=== PATIENT | female | born 1970 | race Caucasian/White ===

== ENCOUNTER 2017-12-25 15:44 | Emergency (ER) | payer BC ==
[2017-12-25] MEDS ORDERED: Sodium Chloride 0.9% 10 ML Syringe FLUSH PRN (16:04)
[2017-12-25] MEDS ORDERED: Morphine 10 MG/ML Syringe IVPUSH ONE (16:04)
[2017-12-25] MEDS ORDERED: Ondansetron 4 MG/2 ML SDV IVPUSH ONE ×2 (16:04→22:00)
--- NOTE | 2017-12-25 16:14 | EDM.PDOC ---
ED HPI GENERAL MEDICAL PROBLEM - General Chief Complaint: Abdominal Pain Stated Complaint: abdominal pain Time Seen by Provider: 12/25/17 16:03 Source of Information: Reports: Patient History Limitations: Reports: No Limitations - History of Present Illness INITIAL COMMENTS - FREE TEXT/NARRATIVE: 2 day history of lower abdominal pain. Described as suprapubic, slightly to the left. Increased pain when patient makes any effort to urinate. Improves when laying flat and relaxed. No fevers/chills. Mild nausea. No emesis/bowel changes/constipation/loose stools. No urinary changes. History of hysterectomy/right ovary removal. Pain is constant, sharp. Left Lower Abdomen Pain Score (Numeric/FACES): 10 - Related Data Allergies Allergy/AdvReac Type Severity Reaction Status Date / Time gluten Allergy Diarrhea, Verified 12/25/17 15:53 severe abdominal pain Home Meds: Home Meds ALPRAZolam [Xanax] 0.25 mg PO BEDTIME 12/14/13 [History] Citalopram Hydrobromide [Celexa] 40 mg PO 2000 06/01/15 [History] Lidocaine [Lidoderm] 1 patch TP ASDIRECTED PRN 06/01/15 [History] SUMAtriptan Succinate [Imitrex] 4 mg SQ ASDIRECTED PRN 09/04/15 [History] Amitriptyline [Elavil] 10 mg PO BEDTIME 11/25/15 [History] Hydrocodone/Acetaminophen [Hydrocodon-Acetaminophen 5-325] 1 each PO Q4HR PRN [History] Montelukast Sodium 10 mg PO BEDTIME 11/25/15 [History] Amoxicillin/Potassium Clav [Augmentin 875-125 Tablet] 1 each PO Q12H #14 tablet 12/25/17 [Rx] LORazepam 0.5 mg PO DAILY 12/25/17 [History] Ondansetron [Zofran ODT] 4 mg PO Q6H PRN #5 tab.dis 12/25/17 [Rx] oxyCODONE HCl/Acetaminophen [Percocet 5-325 mg Tablet] 1 each PO ASDIRECTED PRN #15 tablet 12/25/17 [Rx] Past Medical History HEENT History: Reports: Allergic Rhinitis Gastrointestinal History: Reports: Chronic Diarrhea, Inflammatory Bowel Disease Other Gastrointestinal History: Dyspepsia Musculoskeletal History: Reports: Back Pain, Chronic Neurological History: Reports: Headaches, Chronic Psychiatric History: Reports: Anxiety, Depression Other Psychiatric History: insomnia Other Dermatologic History: 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 - Past Surgical History Female Surgical History: Reports: Hysterectomy, Oophorectomy (right) Social & Family History - Tobacco Use Smoking Status *Q: Former Smoker Years of Tobacco use: 20 Packs/Tins Daily: 1 Used Tobacco, but Quit: Yes Month/Year Tobacco Last Used: >1 year Second Hand Smoke Exposure: Yes - Alcohol Use Days Per Week of Alcohol Use: 0 - Recreational Drug Use Recreational Drug Use: No - Living Situation & Occupation Living situation: Reports: Occupation: Employed ED ROS GENERAL - Review of Systems Review Of Systems: See Below Constitutional: Reports: No Symptoms HEENT: Reports: No Symptoms Respiratory: Reports: No Symptoms Cardiovascular: Reports: No Symptoms Endocrine: Reports: No Symptoms GI/Abdominal: Reports: Abdominal Pain, Nausea. Denies: Black Stool, Bloody Stool, Constipation, Diarrhea, Distension, Stool Incontinence, Vomiting Musculoskeletal: Reports: No Symptoms Skin: Reports: No Symptoms Neurological: Reports: No Symptoms Psychiatric: Reports: No Symptoms Hematologic/Lymphatic: Reports: No Symptoms ED EXAM, GI/ABD - Physical Exam Exam: See Below Exam Limited By: No Limitations General Appearance: Alert, Moderate Distress, Obese Eyes: Bilateral: Normal Appearance, EOMI Ears: Normal External Exam Nose: No: Nasal Drainage Throat/Mouth: Normal Inspection, Normal Lips, Normal Voice, No Airway Compromise Head: Atraumatic, Normocephalic Neck: Supple, Non-Tender Respiratory/Chest: No Respiratory Distress, Lungs Clear, Normal Breath Sounds, No Accessory Muscle Use Cardiovascular: Normal Peripheral Pulses, Regular Rate, Rhythm, No Murmur GI/Abdominal Exam: Normal Bowel Sounds, Soft, Other (tender over suprapubic area , also to left of same area/mild rebound) (Female) Exam: Other (palpation of pouch area (hx hysterectomy) causes tenderness. mild fullness noted. Rebound when examining finger withdrawn. ) Rectal (Female) Exam: Deferred Back Exam: Normal Inspection. No: CVA Tenderness (L), CVA Tenderness (R) Extremities: Normal Inspection, Non-Tender, Normal Capillary Refill Neurological: Alert, Oriented, Normal Cognition, Normal Gait, No Motor/Sensory Deficits Psychiatric: Normal Affect, Normal Mood Skin Exam: Warm, Dry, Intact Course - Vital Signs Last Recorded V/S: Last Vital Signs Temp 36.9 C 12/25/17 15:45 Pulse 100 12/25/17 20:46 Resp 13 12/25/17 20:46 BP 106/72 12/25/17 20:46 Pulse Ox 91 L 12/25/17 20:46 - Orders/Labs/Meds Orders: Active Orders 24 hr Category Date Time Status Abdomen Pelvis w Cont [CT] Stat Exams 12/25/17 17:27 Taken Pelvis Non OB Comp [US] Stat Exams 12/25/17 16:05 Taken Transvaginal Non OB [US] Routine Exams 12/25/17 17:53 Taken Morphine Med 12/25/17 22:00 Once 5 mg IM ONETIME ONE Ondansetron [Zofran] Med 12/25/17 22:00 Once 4 mg IVPUSH ONETIME ONE Sodium Chloride 0.9% [Normal Saline] 1,000 ml Med 12/25/17 20:08 Active IV .BOLUS Sodium Chloride 0.9% [Saline Flush] Med 12/25/17 16:04 Active 10 ml FLUSH ASDIRECTED PRN Saline Lock Insert [OM.PC] Routine Oth 12/25/17 16:04 Ordered Medication Orders Sodium Chloride (Normal Saline) 1,000 mls @ 500 mls/hr IV .BOLUS ONE Stop: 12/25/17 22:07 Last Admin: 12/25/17 20:17 Dose: 500 mls/hr Morphine Sulfate (Morphine) 5 mg IM ONETIME ONE Stop: 12/25/17 22:01 Ondansetron HCl (Zofran) 4 mg IVPUSH ONETIME ONE Stop: 12/25/17 22:01 Last Admin: 12/25/17 20:19 Dose: 4 mg Sodium Chloride (Saline Flush) 10 ml FLUSH ASDIRECTED PRN PRN Reason: Keep Vein Open Last Admin: 12/25/17 20:20 Dose: 10 ml Labs: Laboratory Tests 12/25/17 12/25/17 12/25/17 Range/Units 16:13 16:13 17:00 WBC 10.8 H (4.0-10.2) K/uL RBC 4.96 (3.77-5.09) M/uL Hgb 15.5 D (11.7-15.5) g/dL Hct 44.4 (34.0-46.0) % MCV 89.5 (84.0-98.0) fL MCH 31.3 (28.2-33.3) pg MCHC 34.9 (31.7-36.0) g/dL RDW 12.0 (11.2-14.1) % Plt Count 224 (150-350) K/uL Neut % (Auto) 69.3 (45.0-80.0) % Lymph % (Auto) 16.9 (10.0-50.0) % [place] % (Auto) 13.1 (2.0-14.0) % Eos % (Auto) 0.5 (0.0-5.0) % Baso % (Auto) 0.2 (0.0-2.0) % Neut # (Auto) 7.50 H (1.40-7.00) K/uL Lymph # (Auto) 1.83 (0.50-3.50) K/uL [place] # (Auto) 1.42 H (0.00-1.00) K/uL Eos # (Auto) 0.05 (0.00-0.50) K/uL Baso # (Auto) 0.02 (0.00-0.20) K/uL Sodium 138 (136-145) mmol/L Potassium 3.7 (3.5-5.1) mmol/L Chloride 105 (98-107) mmol/L Carbon Dioxide 22.0 (21.0-32.0) mmol/L BUN 12 (7-18) mg/dL Creatinine 0.74 (0.51-1.17) mg/dL Est Cr Clr Drug Dosing 79.42 mL/min Estimated GFR (MDRD) > 60 mL/min Glucose 114 H (74-106) mg/dL Calcium 8.7 (8.5-10.1) mg/dL Total Bilirubin 0.5 (0.2-1.0) mg/dL AST 11 L (15-37) U/L ALT 17 (12-78) U/L Alkaline Phosphatase 68 (46-116) IU/L Total Protein 7.1 (6.4-8.2) g/dL Albumin 3.5 (3.4-5.0) g/dL Specimen Type Urinblad Urine Color Yellow Urine Appearance Clear Urine pH 6.0 (5.0-9.0) Ur Specific [place] 1.010 (1.005-1.030) Urine Protein Negative (NEGATIVE) mg/dL Urine Glucose (UA) Negative (NEGATIVE) mg/dL Urine Ketones Negative (NEGATIVE) mg/dL Urine Occult Blood Trace-intact H (NEGATIVE) Urine Nitrite Negative (NEGATIVE) Urine Bilirubin Negative (NEGATIVE) Urine Urobilinogen 0.2 (0.2-1.0) E.U./dL Ur Leukocyte Esterase Negative (NEGATIVE) Urine RBC 0-5 /HPF Urine WBC 0-5 /HPF Ur Epithelial Cells Many H /LPF Urine Bacteria Few (NONE TO FEW) /HPF Meds: Medications Generic Name Dose Route Start Last Admin Trade Name Kade PRN Reason Stop Dose Admin Sodium Chloride 1,000 mls @ 500 mls/hr 12/25/17 20:08 12/25/17 20:17 Normal Saline IV 12/25/17 22:07 500 mls/hr .BOLUS ONE Administration Morphine Sulfate 5 mg 12/25/17 22:00 Morphine IM 12/25/17 22:01 ONETIME ONE Ondansetron HCl 4 mg 12/25/17 22:00 12/25/17 20:19 Zofran IVPUSH 12/25/17 22:01 4 mg ONETIME ONE Administration Sodium Chloride 10 ml 12/25/17 16:04 12/25/17 20:20 Saline Flush FLUSH 10 ml ASDIRECTED PRN Administration Keep Vein Open Discontinued Medications Generic Name Dose Route Start Last Admin Trade Name Kade PRN Reason Stop Dose Admin Sodium Chloride 1,000 mls @ 500 mls/hr 12/25/17 16:34 12/25/17 17:20 Normal Saline IV 12/25/17 18:33 500 mls/hr .BOLUS ONE Administration Metronidazole 500 mg/ Premix 100 mls @ 100 mls/hr 12/25/17 20:06 12/25/17 21: 00 IV 12/25/17 21:05 100 mls/hr ONETIME ONE Administration Ceftriaxone Sodium 1 gm/ 100 mls @ 200 mls/hr 12/25/17 20:07 12/25/17 20:18 Sodium Chloride IV 12/25/17 20:36 200 mls/hr ONETIME ONE Administration Iopamidol 100 ml 12/25/17 18:30 12/25/17 18:39 Isovue-300 (61%) IVPUSH 12/25/17 18:31 100 ml ONETIME ONE Administration Morphine Sulfate 5 mg 12/25/17 16:04 12/25/17 16:15 Morphine IVPUSH 12/25/17 16:05 5 mg ONETIME ONE Administration Ondansetron HCl 4 mg 12/25/17 16:04 12/25/17 16:14 Zofran IVPUSH 12/25/17 16:05 4 mg ONETIME ONE Administration Oxycodone HCl 5 mg 12/25/17 20:32 12/25/17 20:37 Oxycodone PO 12/25/17 20:33 5 mg ONETIME ONE Administration - Radiology Interpretation CT Results Date: 12/25/17 CT Results Time: 19:30 (Diverticulitis. No abscess or signs of perforation. ) - Re-Assessments/Exams Free Text/Narrative Re-Assessment/Exam: Initial CBC/Chem/UA unremarkable. WBC very slightly above normal. US requested of lower abdomen to rule out ovarian pathology in remaining left ovary. Tech unable to visualize ovary and there were no specific findings. CT of abdomen then ordered. Patient received IV fluids/Morphine/Zofran. Results obtained 19:30. Radiology noted changes consistent with diverticulitis. No perforation or abscess noted. Discussed with patient. Suggestion for overnight hospitalization with IV fluids/ pain management made. Patient did not wish to stay and wished to try outpatient therapy. Single doses of Rocephin as well as Flagyl ordered IV. Plan at this time is to have patient start course of Augmentin tomorrow. PRN Zofran and Percocet prescribed. Precautions reviewed. Very close follow up with patient's primary provider stressed. Recommend daily follow up for the next 2-3 days to make certain that the infection is improving. Patient is aware that if worsening is noted she will likely require hospitalization and surgical consult. Clear liquid diet for 2-3 days until clinical improvement is noted. Departure - Departure Time of Disposition: 22:30 Disposition: Home, Self-Care 01 Condition: Good Clinical Impression: Diverticulitis - Discharge Information Prescriptions: Amoxicillin/Potassium Clav [Augmentin 875-125 Tablet] 1 each PO Q12H #14 tablet Ondansetron [Zofran ODT] 4 mg PO Q6H PRN #5 tab.dis PRN Reason: Nausea oxyCODONE HCl/Acetaminophen [Percocet 5-325 mg Tablet] 1 each PO ASDIRECTED PRN #15 tablet PRN Reason: Pain Instructions: Diverticulitis Referrals: Dia Almendarez, DEPUT[employer] [Primary Care Provider] - Forms: ED Department Discharge Additional Instructions: Do NOT take NSAIDS such as Motrin/Ibuprofen. These can increase your risk of complications. Clear liquids ONLY for the next 2-3 days. You will be able to advance your diet once we see improvement in symptoms. Take Augmentin twice daily. Zofran as needed for nausea. Percocet as needed for pain. Follow up tomorrow as well as on with your clinic provider for recheck. If symptoms worsen, a surgical consult will be needed as well as possible admission to the hospital. Stay hydrated! Follow up otherwise as needed if things suddenly worsen. - My Orders Last 24 Hours: My Active Orders 12/25/17 16:04 Sodium Chloride 0.9% [Saline Flush] 10 ml FLUSH ASDIRECTED PRN Saline Lock Insert [OM.PC] Routine 12/25/17 16:05 Pelvis Non OB Comp [US] Stat 12/25/17 17:27 Abdomen Pelvis w Cont [CT] Stat 12/25/17 17:53 Transvaginal Non OB [US] Routine 12/25/17 20:08 Sodium Chloride 0.9% [Normal Saline] 1,000 ml IV .BOLUS 12/25/17 22:00 Morphine 5 mg IM ONETIME ONE Ondansetron [Zofran] 4 mg IVPUSH ONETIME ONE - Assessment/Plan Last 24 Hours: My Active Orders 12/25/17 16:04 Sodium Chloride 0.9% [Saline Flush] 10 ml FLUSH ASDIRECTED PRN Saline Lock Insert [OM.PC] Routine 12/25/17 16:05 Pelvis Non OB Comp [US] Stat 12/25/17 17:27 Abdomen Pelvis w Cont [CT] Stat 12/25/17 17:53 Transvaginal Non OB [US] Routine 12/25/17 20:08 Sodium Chloride 0.9% [Normal Saline] 1,000 ml IV .BOLUS 03/13/18 22:00 Morphine 5 mg IM ONETIME ONE Ondansetron [Zofran] 4 mg IVPUSH ONETIME ONE
[2017-12-25 16:33] LABS: CHLORIDE,CL 105 mmol/L (98-107); SODIUM,NA 138 mmol/L (136-145)
[2017-12-25] MEDS ORDERED: Sodium Chloride 0.9% 1,000 ML IV ONE ×2 (16:34→20:08)
[2017-12-25] MEDS ORDERED: Iopamidol 612 MG/ML 100 ML Bottle IVPUSH ONE (18:30)
[2017-12-25] MEDS ORDERED: metroNIDAZOLE/Normal Saline 500 MG in Premix Bag 1 BAG IV ONE (20:06)
[2017-12-25] MEDS ORDERED: cefTRIAXone 1 GM in Sodium Chloride 0.9% 100 ML IV ONE (20:07)
[2017-12-25] MEDS ORDERED: oxyCODONE 5 MG Tab PO ONE (20:32)
[2017-12-25] MEDS ORDERED: Morphine 10 MG/ML Syringe IM ONE (22:00)
[2017-12-26 03:40] VITALS: BP 102/65
== END 2017-12-25 22:51 | disposition home or self-care (01) ==
LOC: LL.ED 15:44
DX: K57.92 Diverticulitis of intestine, part unspecified, without perforation or abscess without bleeding (principal); Z91.048 Other nonmedicinal substance allergy status; Z87.891 Personal history of nicotine dependence; Z79.899 Other long term (current) drug therapy
CPT/HCPCS: 36415; 74177; 76830; 76856; 80053; 81001; 85025; 96361; 96365; 96367; 96372; 96375; 96376; 99284; A9270; J0696; J2270 ×2; J2405 ×2; J7030 ×2; J7050 ×2; Q9967 ×2

== ENCOUNTER 2018-03-26 22:35 | Emergency (ER) | payer BC ==
--- NOTE | 2018-03-26 22:51 | EDM.PDOC ---
ED HPI GENERAL MEDICAL PROBLEM - General Chief Complaint: General Stated Complaint: malaise, migraine, lumbar pain Time Seen by Provider: 03/26/18 22:40 Source of Information: Reports: Patient, Family (), Old Records ([facility] chart/EMR) History Limitations: Reports: No Limitations - History of Present Illness INITIAL COMMENTS - FREE TEXT/NARRATIVE: The patient was brought to the emergency room via private automobile by her for evaluation of multiple complaints, including nonspecific generalized fatigue, weakness, and myalgias with no history of exposure to infection, food poisoning etc. She has also had exacerbation of her migraine headaches, which started at about 7 AM yesterday morning with 1 shot of Imitrex required both yesterday evening and also at 21:00 hours this evening. She has had little oral intake since onset of the above symptoms with dry heaves secondary to her migraine headaches, which are typical of her previous episodes. Patient has also had some exacerbation of her chronic low back pain with no history of recent injury. Her symptoms did not improve despite above medical therapy. The patient denies any chest pain/pressure, heart flutter, dizziness, orthostasis, orthopnea, diaphoresis, paresthesias, recent decreased exercise tolerance, or any other anginal-type symptoms. No recent history of abdominal pain, heartburn, nausea, diarrhea, melena, gross hematochezia, or any food intolerance, including fatty foods, etc.. She denies any colic, gross hematuria, or other UTI symptoms. The patient also denies any recent fever, cough, wheezing, dyspnea, etc.. No history of recent visual changes, diplopia, change in mental status, or other change in neurological status. Onset: Today Onset Date: 03/25/18 Onset Time: 07:00 Duration: Constant, Getting Worse Location: Reports: Head (Headache), Back (Low back), Generalized (Arthralgias). Denies: Face, Neck, Chest, Abdomen, Pelvis, Upper Extremity, Left, Upper Extremity, Right, Radiates to Quality: Reports: Same as Previous Episode Severity: Moderate Improves with: Reports: None Worsens with: Reports: None Context: Reports: Other (As above) Associated Symptoms: Reports: Headaches, Loss of Appetite, Nausea/Vomiting, Weakness. Denies: Confusion, Chest Pain, Cough, Diaphoresis, Fever/Chills, Rash , Seizure, Shortness of Breath, Syncope Treatments CUSTOM BOW MAKER: Reports: Other Medication(s) (As above). Denies: Acetaminophen , Aspirin, NSAIDS Headache Pain Score (Numeric/FACES): 5 Lumbar Pain Score (Numeric/FACES): 5 - Related Data Allergies Allergy/AdvReac Type Severity Reaction Status Date / Time gluten Allergy Diarrhea, Verified 03/26/18 22:48 severe abdominal pain Home Meds: Home Meds ALPRAZolam [Xanax] 0.25 mg PO BEDTIME 12/14/13 [History] Citalopram Hydrobromide [Celexa] 40 mg PO 199906/01/15 [History] SUMAtriptan Succinate [Imitrex] 4 mg SQ ASDIRECTED PRN 09/04/15 [History] Amitriptyline [Elavil] 10 mg PO BEDTIME 11/25/15 [History] LORazepam 0.5 mg PO DAILY 12/25/17 [History] Folic Acid 1 mg PO ASDIRECTED 03/26/18 [History] Lidocaine [Anecream] 1 applic TP ASDIRECTED PRN 03/26/18 [History] Naltrexone 6 tab PO MO 03/26/18 [History] Phentermine HCl 37.5 mg PO DAILY 03/26/18 [History] Topiramate 1 tab PO BID 03/26/18 [History] Past Medical History HEENT History: Reports: Allergic Rhinitis, Impaired Vision, Sinusitis, Other ( See Below). Denies: Cataract, Glaucoma, Hard of Hearing, Macular Degeneration, Retinal Detachment Other HEENT History: Allergic rhinitis and sinusitis. Patient wears glasses. Cardiovascular History: Reports: Other (See Below). Denies: Aneurysm, Arrhythmia, Blood Clots/VTE/DVT, CAD, Heart Failure, Heart Murmur, High Cholesterol, Hypertension, PVD, Syncope Other Cardiovascular History: She does not know cholesterol status with history of fatty liver. Borderline anterior wall cardiac ischemia by EKG with no workup. Chronic hypotension. Respiratory History: Reports: Intubation, Previous. Denies: Asthma, COPD, Intubation, Difficult, PE, Pneumothorax, Sleep Apnea, TB Gastrointestinal History: Reports: Celiac Disease, Cholelithiasis, Chronic Constipation, Chronic Diarrhea, Diverticulosis, GERD, Other (See Below). Denies : Colon Polyp, Gastritis, GI Bleed, Hepatitis, Hiatal Hernia, Inflammatory Bowel Disease, Irritable Bowel Syndrome, Jaundice, Pancreatitis, PUD Other Gastrointestinal History: Diarrhea with gluten exposure. Despite previous medical records patient denies known inflammatory bowel disease. History of recurrent diverticulitis including on 07/13/16 and 12/25/17 with sigmoid diverticulosis by colonoscopy as below. GERD with esophagitis. Fatty liver. Genitourinary History: Reports: Renal Calculus, Other (See Below). Denies: Acute Renal Failure, Chronic Renal Insuffiency, STD, Urinary Incontinence, UTI, Recurrent Other Genitourinary History: History of urolithiasis in 2012 with spontaneous passageside unknown. AVIATION MECHANIC History: Reports: Dysfunctional Uterine Bleeding, Fibroids, , Spontaneous . Denies: Endometriosis : 4 Para: 3 LMP (Approximate): Other (See Below) Other OB/BYN History: Surgical menopause secondary to right ovarian cancer as below. Hypotension with last 2 pregnancies. SAB during first trimester with D&C as below. Otherwise Full term without complications during pregnancies or deliveries. Fibrocystic breast disease. Musculoskeletal History: Reports: Arthritis, Back Pain, Chronic, Fracture, Osteoarthritis, Other (See Below). Denies: Amputation, Gout, Neck Pain, Chronic , RA, SLE Other Musculoskeletal History: Gliosis with chronic low back pain. Fracture of the right thumb in 1988. Neurological History: Reports: Headaches, Chronic, Migraines, Seizure, Other ( See Below). Denies: Cerebral Aneurysms, Concussion, CVA, Head Trauma, MS, Neuropathy, Peripheral, Parkinson's, TIA Other Neuro History: Unknown type of seizures during teenage years with last seizure at age 20. Psychiatric History: Reports: Anxiety, Depression. Denies: Abuse, Victim of, ADD, ADHD, Addiction, Psych Hospitalization(s), PTSD, Suicide Attempt, Suicidal Ideation Other Psychiatric History: insomnia Endocrine/Metabolic History: Reports: None. Denies: Diabetes, Gestational, Diabetes, Type I, Diabetes, Type II, Diabetes Mellitus, Type 3c, Hypothyroidism , IDDM, Osteopenia, Osteoporosis Hematologic History: Reports: None. Denies: Anemia, Blood Transfusion(s), Iron Deficiency Immunologic History: Reports: None, Immunosuppression, Other (See Below). 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 Denies: Basal Cell Carcinoma, Breast, Cervix, Hodgkin's Lymphoma, Leukemia, Malignant Melanoma , Non-Hodgkin's Lymphoma, Squamous Cell Carcinoma, Uterine Other Oncologic History: Right-sided ovarian cancer with surgery as below within 2007 with no chemotherapy or radiation therapy required. Dermatologic History: Reports: Other (See Below). 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 Acne vulgaris. - Infectious Disease History Infectious Disease History: Reports: Chicken Pox, Mononucleosis (2011), MRSA ( MRSA as above.), Shingles (Shingles of the left chest/breast on 12/14/13 with previous herpes zoster in the left cervical region). Denies: C-Difficile, Measles, Meningitis, Mumps, Pertussis (Whooping Cough), Rheumatic Fever, Rubella , Scarlet Fever, VRE - Past Surgical History Head Surgeries/Procedures: Reports: None HEENT Surgical History: Reports: Oral Surgery, Other (See Below). Denies: Adenoidectomy, Cataract Surgery, Eye Surgery, Laser Surgery, LASIK, Myringotomy w Tube(s), Naso-Sinus Surgery, Tonsillectomy Other HEENT Surgeries/Procedures: [place] teeth extraction 4 at age 24. Cardiovascular Surgical History: Reports: None. Denies: Varicose Respiratory Surgical History: Reports: None. Denies: Thoracentesis GI Surgical History: Reports: Cholecystectomy, Colonoscopy, EGD, Other (See Below). Denies: Appendectomy, Hernia, Abdominal, Hernia, Inguinal, Hernia Repair/Other, Polypectomy Other GI Surgeries/Procedures: Laparoscopic cholecystectomy in 2014. EGD with biopsy on 03/25/15. Colonoscopy on 11/25/15. Female Surgical History: Reports: D&C, Hysterectomy, Salpingo-Oophorectomy, Other (See Below). Denies: Breast Biopsy, Section, Tubal Ligation Other Female Surgeries/Procedures: Complete hysterectomy with right-sided salpingo-oophorectomy secondary to ovarian cancer in 2007. D&C in 1993 secondary to SAB as above. Endocrine Surgical History: Reports: None. Denies: Thyroid Biopsy Neurological Surgical History: Reports: None. Denies: C-Spine, Discectomy, Laminectomy, Lumbar Spine, Sacral Spine, Spinal Fusion, Thoracic Spine, Vertebroplasty Musculoskeletal Surgical History: Reports: None. Denies: Arthroscopic Procedure , Carpal Tunnel, Ganglion Cyst, Joint Replacement, ORIF, Shoulder Surgery Oncologic Surgical History: Reports: None Dermatological Surgical History: Reports: None - Past Imaging History Past Imaging History: Reports: CAT Scan (CT of the head on 03/25/14. CT of the abdomen and pelvis with contrast last on 12/25/17 with previous evaluations on , 07/13/16, 05/12/16 and 06/02/15), Mammogram (Last mammogram on 05/17/17.), MRI (MRI of the lumbar spine on 07/19/15, 04/28/14, and 04/21/14.), Ultrasound ( Pelvic ultrasounds on 12/25/17 and 03/01/17. Bilateral renal ultrasound on . Right breast ultrasounds on 03/22/15 and 12/24/14 with bilateral breast ultrasounds on 07/15/14) Social & Family History - Tobacco Use Smoking Status *Q: Current Every Day Smoker Tobacco Use Within Last Twelve Months: Cigarettes Years of Tobacco use: 24 Packs/Tins Daily: 0.1 Packs/Tins Daily Comment: Started smoking at age 23 with maximum use of one half pack per day. Used Tobacco, but Quit: No Smoking Cessation Information Provided To Patient: Yes Second Hand Smoke Exposure: Yes Source of Second Hand Smoke Exposure: smokes. Second Hand Smoke Education Provided: Yes - Caffeine Use Caffeine Use: Reports: Coffee (3 pots per day). Denies: Energy Drinks, Soda, Tea - Alcohol Use Alcohol Use History: Yes Days Per Week of Alcohol Use: 0 Number of Drinks Per Day: 1 Number of Drinks Per Day Comment: Usually for holidays one glass of wine. No previous DWIs, problems with alcohol abuse, etc. 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 ED EXAM, GENERAL - Physical Exam Exam: See Below Exam Limited By: No Limitations General Appearance: Alert, WD/WN, No Apparent Distress, Anxious (Mild) Eye Exam: Bilateral Eye: EOMI, Normal Inspection (No nystagmus), PERRL Ears: Normal External Exam, Normal Canal, Hearing Grossly Normal, Normal TMs Nose: Normal Mucosa, No Blood, Clear Rhinorrhea (Mild bilateral clear) Throat/Mouth: Normal Inspection, Normal Lips, Normal Teeth, Normal Gums, Normal Oropharynx, Normal Voice, No Airway Compromise. No: Dysphagia, Perioral Cyanosis Head: Atraumatic, Normocephalic. No: Facial Swelling, Facial Tenderness, Sinus Tenderness Neck: Normal Inspection, Supple, Non-Tender, Full Range of Motion. No: Carotid Bruit, Lymphadenopathy (L), Lymphadenopathy (R), Thyromegaly Respiratory/Chest: No Respiratory Distress, Lungs Clear, Normal Breath Sounds, No Accessory Muscle Use, Chest Non-Tender. No: Pleural Rub, Retractions Cardiovascular: Normal Peripheral Pulses, Regular Rate, Rhythm, No Edema, No Gallop, No JVD, No Murmur, No Rub. No: Gallop/S3, Gallop/S4, Friction Rub Peripheral Pulses: 2+: Radial (L), Radial (R), Dorsalis Pedis (L), Dorsalis Pedis (R) GI/Abdominal: Normal Bowel Sounds, Soft, Non-Tender, No Organomegaly, No Distention, No Abnormal Bruit, No Mass. No: Guarding (Female) Exam: Deferred Rectal (Female) Exam: Deferred Back Exam: Full Range of Motion, Paraspinal Tenderness (Minimal bilateral in mid lumbar region). No: CVA Tenderness (L), CVA Tenderness (R), Muscle Spasm Extremities: Normal Inspection, Normal Range of Motion, Non-Tender, No Pedal Edema, Normal Capillary Refill. No: Luly's Sign Neurological: Alert, Oriented, CN II-XII Intact, Normal Cognition, Normal Gait, Normal Reflexes, No Motor/Sensory Deficits Psychiatric: Anxious (Mild), Depressed Mood (Borderline) Skin Exam: Warm, Dry, Intact, Normal Color, No Rash, Other (Facial acne). No: Diaphoretic, Ecchymosis, Petechiae, Wound/Incision Lymphatic: No Adenopathy Course - Vital Signs Last Recorded V/S: Last Vital Signs Temp 36.8 C 03/26/18 22:35 Pulse 76 03/26/18 23:45 Resp 18 03/26/18 22:35 BP 91/49 L 03/26/18 23:45 Pulse Ox 98 03/26/18 22:35 Vital Signs - 24 hr 03/26/18 03/26/18 03/26/18 22:35 22:56 23:24 Temperature [ 36.8 C Oral] Pulse, 71 77 82 Peripheral [ Brachial] Respiratory 18 Rate Blood Pressure 101/64 86/54 L 101/72 [Upper Arm] O2 Sat by Pulse 98 Oximetry 03/26/18 23:45 Temperature [ Oral] Pulse, 76 Peripheral [ Brachial] Respiratory Rate Blood Pressure 91/49 L [Upper Arm] O2 Sat by Pulse Oximetry - Orders/Labs/Meds Orders: Active Orders 24 hr Category Date Time Status Peripheral IV Care [RC] . DIRECTED Care 03/26/18 22:55 Active CULTURE BLOOD [BC] Stat Lab 03/26/18 23:05 Received CULTURE BLOOD [BC] Stat Lab 03/26/18 23:38 Received CULTURE STREP A CONFIRMATION [] Stat Lab 03/26/18 22:54 Results CULTURE URINE [] Routine Lab 03/26/18 23:05 Received STREP SCRN A RAPID W CULT CONF [RM] Stat Lab 03/26/18 22:54 Ordered URINALYSIS W/MICROSCOPIC [UA W/MICROSCOPIC] [URIN] Lab 03/26/18 23:05 Ordered Routine Sodium Chloride 0.9% [Saline Flush] Med 03/26/18 22:54 Active 10 ml FLUSH ASDIRECTED PRN Blood Culture x2 Reflex Set [OM.PC] Stat Oth 03/26/18 22:52 Ordered Obtain Past Medical Record [OM.PC] Stat Oth 03/26/18 22:52 Active Peripheral IV Insertion Adult [OM.PC] Routine Oth 03/26/18 22:54 Ordered Medication Orders Sodium Chloride (Saline Flush) 10 ml FLUSH ASDIRECTED PRN PRN Reason: Keep Vein Open Last Admin: 03/27/18 00:00 Dose: 10 ml Admin: 03/26/18 23:59 Dose: 10 ml Labs: Laboratory Tests 03/26/18 03/26/18 03/26/18 Range/Units 23:05 23:05 23:05 WBC 5.9 (4.0-10.2) K/uL RBC 5.25 H (3.77-5.09) M/uL Hgb 15.4 (11.7-15.5) g/dL Hct 45.1 (34.0-46.0) % MCV 85.9 (84.0-98.0) fL MCH 29.3 (28.2-33.3) pg MCHC 34.1 (31.7-36.0) g/dL RDW 13.5 (11.2-14.1) % Plt Count 236 (150-350) K/uL Neut % (Auto) 45.6 (45.0-80.0) % Lymph % (Auto) 40.4 (10.0-50.0) % [place] % (Auto) 10.8 (2.0-14.0) % Eos % (Auto) 2.9 (0.0-5.0) % Baso % (Auto) 0.3 (0.0-2.0) % Neut # (Auto) 2.70 (1.40-7.00) K/uL Lymph # (Auto) 2.39 (0.50-3.50) K/uL [place] # (Auto) 0.64 (0.00-1.00) K/uL Eos # (Auto) 0.17 (0.00-0.50) K/uL Baso # (Auto) 0.02 (0.00-0.20) K/uL Sodium 141 (136-145) mmol/L Potassium 3.5 (3.5-5.1) mmol/L Chloride 105 (98-107) mmol/L Carbon Dioxide 26.4 (21.0-32.0) mmol/L BUN 11 (7-18) mg/dL Creatinine 0.66 (0.51-1.17) mg/dL Est Cr Clr Drug Dosing 89.04 mL/min Estimated GFR (MDRD) > 60 mL/min Glucose 94 (74-106) mg/dL Lactic Acid 0.5 (0.4-2.0) mmol/L Calcium 8.8 (8.5-10.1) mg/dL Magnesium 1.9 (1.8-2.4) mg/dL Total Bilirubin 0.4 (0.2-1.0) mg/dL AST 15 (15-37) U/L ALT 24 (12-78) U/L Alkaline Phosphatase 76 (46-116) IU/L Total Protein 7.0 (6.4-8.2) g/dL Albumin 3.5 (3.4-5.0) g/dL TSH, Ultra Sensitive 3.408 (0.358-3.740) mIU/mL Specimen Type Urine Color Urine Appearance Urine pH (5.0-9.0) Ur Specific [place] (1.005-1.030) Urine Protein (NEGATIVE) mg/dL Urine Glucose (UA) (NEGATIVE) mg/dL Urine Ketones (NEGATIVE) mg/dL Urine Occult Blood (NEGATIVE) Urine Nitrite (NEGATIVE) Urine Bilirubin (NEGATIVE) Urine Urobilinogen (0.2-1.0) E.U./dL Ur Leukocyte Esterase (NEGATIVE) Urine RBC /HPF Urine WBC /HPF Ur Epithelial Cells /LPF Urine Bacteria (NONE TO FEW) /HPF Urinalysis Comment Monoscreen (NEGATIVE) 03/26/18 03/26/18 Range/Units 23:05 23:05 WBC (4.0-10.2) K/uL RBC (3.77-5.09) M/uL Hgb (11.7-15.5) g/dL Hct (34.0-46.0) % MCV (84.0-98.0) fL MCH (28.2-33.3) pg MCHC (31.7-36.0) g/dL RDW (11.2-14.1) % Plt Count (150-350) K/uL Neut % (Auto) (45.0-80.0) % Lymph % (Auto) (10.0-50.0) % [place] % (Auto) (2.0-14.0) % Eos % (Auto) (0.0-5.0) % Baso % (Auto) (0.0-2.0) % Neut # (Auto) (1.40-7.00) K/uL Lymph # (Auto) (0.50-3.50) K/uL [place] # (Auto) (0.00-1.00) K/uL Eos # (Auto) (0.00-0.50) K/uL Baso # (Auto) (0.00-0.20) K/uL Sodium (136-145) mmol/L Potassium (3.5-5.1) mmol/L Chloride (98-107) mmol/L Carbon Dioxide (21.0-32.0) mmol/L BUN (7-18) mg/dL Creatinine (0.51-1.17) mg/dL Est Cr Clr Drug Dosing mL/min Estimated GFR (MDRD) mL/min Glucose (74-106) mg/dL Lactic Acid (0.4-2.0) mmol/L Calcium (8.5-10.1) mg/dL Magnesium (1.8-2.4) mg/dL Total Bilirubin (0.2-1.0) mg/dL AST (15-37) U/L ALT (12-78) U/L Alkaline Phosphatase (46-116) IU/L Total Protein (6.4-8.2) g/dL Albumin (3.4-5.0) g/dL TSH, Ultra Sensitive (0.358-3.740) mIU/mL Specimen Type Urincc Urine Color Yellow Urine Appearance Cloudy Urine pH 6.0 (5.0-9.0) Ur Specific [place] 1.020 (1.005-1.030) Urine Protein Negative (NEGATIVE) mg/dL Urine Glucose (UA) Negative (NEGATIVE) mg/dL Urine Ketones Negative (NEGATIVE) mg/dL Urine Occult Blood Trace-intact H (NEGATIVE) Urine Nitrite Negative (NEGATIVE) Urine Bilirubin Negative (NEGATIVE) Urine Urobilinogen 0.2 (0.2-1.0) E.U./dL Ur Leukocyte Esterase Negative (NEGATIVE) Urine RBC 0-5 /HPF Urine WBC 0-5 /HPF Ur Epithelial Cells Many H /LPF Urine Bacteria Few (NONE TO FEW) /HPF Urinalysis Comment Monoscreen Negative (NEGATIVE) Blood cultures 2 were collected. Urine specimen set up for culture and sensitivity. Microbiology 03/26/18 22:54 Group A Streptococcus Rapid Screen - Final Throat NEGATIVE STREP A SCREEN Meds: Medications Generic Name Dose Route Start Last Admin Trade Name Freq PRN Reason Stop Dose Admin Sodium Chloride 10 ml 03/26/18 22:54 03/27/18 00:00 Saline Flush FLUSH 10 ml ASDIRECTED PRN Administration Keep Vein Open Discontinued Medications Generic Name Dose Route Start Last Admin Trade Name Freq PRN Reason Stop Dose Admin Diphenhydramine HCl 50 mg 03/26/18 23:51 03/26/18 23:56 Benadryl IVPUSH 03/26/18 23:52 50 mg ONETIME ONE Administration Lactated Ringer's 1,000 mls @ 999 mls/hr 03/26/18 22:54 03/26/18 23:14 Ringers, Lactated IV 03/26/18 23:54 999 mls/hr .BOLUS ONE Administration Ketorolac Tromethamine 30 mg 03/26/18 23:50 03/26/18 23:56 Toradol IVPUSH 03/26/18 23:51 30 mg ONETIME ONE Administration Metoclopramide HCl 20 mg 03/26/18 23:50 03/26/18 23:55 Reglan IVPUSH 03/26/18 23:51 20 mg ONETIME ONE Administration - Radiology Interpretation Free Text/Narrative:: None Departure - Departure Time of Disposition: 00:30 Disposition: Home, Self-Care 01 Condition: Good Clinical Impression: Osteoarthritis, Peptic reflux disease, Tobacco abuse counseling, Mixed anxiety depressive disorder Migraine headache Qualifiers: Migraine type: without aura Status migrainosus presence: without status migrainosus Intractability: not intractable Qualified Code(s): G43.009 - Migraine without aura, not intractable, without status migrainosus URI (upper respiratory infection) Qualifiers: URI type: unspecified viral URI Qualified Code(s): J06.9 - Acute upper respiratory infection, unspecified Hypotension Qualifiers: Hypotension type: idiopathic hypotension Qualified Code(s): I95.0 - Idiopathic hypotension - Discharge Information Instructions: Viral Respiratory Infection, [id number], Recurrent Migraine Headache, [id number] Referrals: Dia Almendarez SHOT LIGHTER [Primary Care Provider] - Forms: ED Department Discharge, ED Return to Work/School Form Additional Instructions: 1. Followup with your regular provider in 7-10 days as directed. Bring these discharge instructions with you to that visit. 2. Discuss at the above follow-up visit your concurrent Ativan and Xanax use with recommendation of choosing one of these medications, if needed, rather than duplicating therapy 3. Tylenol 650 mg by mouth every 4 hours and/or OTC ibuprofen 2-3 tabs by mouth every 6 hours with food as directed./needed. Next dose of ibuprofen in 6 hours as needed secondary to medications given in the emergency room 4. BenGay or equivalent, heating pad, and/or ice packs as directed. 5. Ice packs to head and neck, dark and quiet room, etc. as directed until headache resolves. 6. [place] diet including encouragement of oral fluids such as sports drinks, etc. for 24-48 hours as directed. Advance to regular diet as tolerated thereafter. 7. Work excuse- See Form 8. Stop all tobacco use LUIS as directed/per provided information and consider contacting Quit LIne, etc.. 9. Sedation precautions with no driving, etc. for 12 hours because of emergency room medications. 10. Immediately after this visit verify that your cellular telephone's voicemail has been activated and is empty. Also verify that your home telephone 's answering machine is operating properly and has space to receive messages. Note that it is sometimes necessary for us to be able to contact you at a later date to discuss your medical care. - Problem List & Annotations (1) URI (upper respiratory infection) SNOMED Code(s): 37698744 Code(s): J06.9 - ACUTE UPPER RESPIRATORY INFECTION, UNSPECIFIED Status: Acute Priority: High Current Visit: Yes Onset Date: 03/25/18 Annotation/ Comment:: Observe for now. Symptomatic relief as per discharge instructions. Qualifiers: URI type: unspecified viral URI Qualified Code(s): J06.9 - Acute upper respiratory infection, unspecified (2) Migraine headache SNOMED Code(s): 75925518 Code(s): G43.909 - MIGRAINE, UNSP, NOT INTRACTABLE, WITHOUT STATUS MIGRAINOSUS Status: Acute Priority: High Current Visit: Yes Onset Date: 03/25/18 Annotation/Comment:: Exacerbation of her migraine headache as above with medical therapy in the emergency room. Sedation precautions given. Continue to observe closely. Note negative previous CT scan of the head as above. Qualifiers: Migraine type: without aura Status migrainosus presence: without status migrainosus Intractability: not intractable Qualified Code(s): G43.009 - Migraine without aura, not intractable, without status migrainosus (3) Osteoarthritis SNOMED Code(s): 114920438 Code(s): M19.90 - UNSPECIFIED OSTEOARTHRITIS, UNSPECIFIED SITE Status: Acute Priority: Medium Current Visit: Yes Annotation/Comment:: Exacerbation of her chronic low back pain as above. IV Toradol given. Continue to observe closely. Symptomatic relief as per discharge instructions. (4) Hypotension SNOMED Code(s): 26263314 Code(s): I95.9 - HYPOTENSION, UNSPECIFIED Status: Chronic Priority: Medium Current Visit: Yes Annotation/Comment:: Mild exacerbation of her chronic hypotension with current illness. 1 L IV bolus of lactated Ringer's given. She needs to continue to encourage fluids at home as per discharge instructions. Qualifiers: Hypotension type: idiopathic hypotension Qualified Code(s): I95.0 - Idiopathic hypotension (5) Mixed anxiety depressive disorder SNOMED Code(s): 678296580 Code(s): F41.8 - OTHER SPECIFIED ANXIETY DISORDERS Status: Chronic Priority: Medium Current Visit: Yes Annotation/Comment:: Stable by patient history. Note duplicate Xanax and Ativan therapy which she will discuss further with her regular provider at follow-up as per discharge instructions. (6) Peptic reflux disease SNOMED Code(s): 907754177 Code(s): K21.9 - GASTRO-ESOPHAGEAL REFLUX DISEASE WITHOUT ESOPHAGITIS Status: Chronic Priority: Medium Current Visit: Yes Annotation/Comment:: Stable by history with no current medications required. (7) Tobacco abuse counseling SNOMED Code(s): 176891348, [id number], [id number] Code(s): Z71.6 - TOBACCO ABUSE COUNSELING Status: Chronic Priority: Medium Current Visit: Yes Annotation/Comment:: Stop all tobacco use LUIS as directed/per provided information and consider contacting [facility]uit [facility]ne, etc.. Patient already has Chantix at home and was encouraged to initiate this medication LUIS as per recommendations of her regular provider. Her should also join her in stopping smoking. - Problem List Review Problem List Initiated/Reviewed/Updated: Yes - My Orders Last 24 Hours: My Active Orders 03/26/18 22:52 Blood Culture x2 Reflex Set [OM.PC] Stat Obtain Past Medical Record [OM.PC] Stat 03/26/18 22:54 CULTURE STREP A CONFIRMATION [RM] Stat STREP SCRN A RAPID W CULT CONF [RM] Stat Sodium Chloride 0.9% [Saline Flush] 10 ml FLUSH ASDIRECTED PRN Peripheral IV Insertion Adult [OM.PC] Routine 03/26/18 22:55 Peripheral IV Care [RC] . DIRECTED 03/26/18 23:05 CULTURE BLOOD [BC] Stat CULTURE URINE [RM] Routine URINALYSIS W/MICROSCOPIC [UA W/MICROSCOPIC] [URIN] Routine 03/26/18 23:38 CULTURE BLOOD [BC] Stat - Assessment/Plan Last 24 Hours: My Active Orders 03/26/18 22:52 Blood Culture x2 Reflex Set [OM.PC] Stat Obtain Past Medical Record [OM.PC] Stat 03/26/18 22:54 CULTURE STREP A CONFIRMATION [RM] Stat STREP SCRN A RAPID W CULT CONF [RM] Stat Sodium Chloride 0.9% [Saline Flush] 10 ml FLUSH ASDIRECTED PRN Peripheral IV Insertion Adult [OM.PC] Routine 03/26/18 22:55 Peripheral IV Care [RC] . DIRECTED 03/26/18 23:05 CULTURE BLOOD [BC] Stat CULTURE URINE [RM] Routine URINALYSIS W/MICROSCOPIC [UA W/MICROSCOPIC] [URIN] Routine 03/26/18 23:38 CULTURE BLOOD [BC] Stat Assessment:: As above Plan: As above. Extensive precautions were given to the patient and her , who are in agreement with the treatment plan. See Patient Instructions for further treatment and plan.
[2018-03-26] MEDS ORDERED: Lactated Ringers 1,000 ML IV ONE (22:54)
[2018-03-26 23:33] LABS: CHLORIDE,CL 105 mmol/L (98-107); SODIUM,NA 141 mmol/L (136-145)
[2018-03-26] MEDS ORDERED: Ketorolac 30 MG/ML SDV IVPUSH ONE (23:50)
[2018-03-26] MEDS ORDERED: Metoclopramide 10 MG/2 ML SDV IVPUSH ONE (23:50)
[2018-03-26] MEDS ORDERED: diphenhydrAMINE 50 MG/ML SDV IVPUSH ONE (23:51)
[2018-03-26] MEDS: Sodium Chloride 0.9% 10 ML Syringe FLUSH PRN (23:59)
[2018-03-27] MEDS: Sodium Chloride 0.9% 10 ML Syringe FLUSH PRN
[2018-03-27 00:06] VITALS: BP 91/49
== END 2018-03-27 00:30 | disposition home or self-care (01) ==
LOC: LL.ED 22:35
DX: G43.009 Migraine without aura, not intractable, without status migrainosus (principal); J06.9 Acute upper respiratory infection, unspecified; I95.0 Idiopathic hypotension; M19.90 Unspecified osteoarthritis, unspecified site; K21.9 Gastro-esophageal reflux disease without esophagitis; Z71.6 Tobacco abuse counseling; F41.8 Other specified anxiety disorders; F17.210 Nicotine dependence, cigarettes, uncomplicated; Z91.048 Other nonmedicinal substance allergy status; Z79.899 Other long term (current) drug therapy
CPT/HCPCS: 36415; 80053; 81001; 83605; 83735; 84443; 85025; 86308; 87040; 87081; 87086; 87430; 96361; 96374; 96375; 99283; J1200; J1885; J2765; J7050; J7120

== ENCOUNTER 2019-09-21 17:27 | Emergency (ER) | payer BC ==
[2019-09-21] MEDS ORDERED: Nitroglycerin 0.4 MG Tab.SL SL ONE (17:52)
[2019-09-21 18:13] LABS: CHLORIDE,CL 110 mmol/L (98-107); SODIUM,NA 146 mmol/L (136-145)
[2019-09-21] MEDS ORDERED: Ondansetron 4 MG/2 ML SDV IVPUSH ONE (18:13)
[2019-09-21] MEDS ORDERED: Sodium Chloride 0.9% 1,000 ML IV ONE (18:13)
[2019-09-21] MEDS ORDERED: Morphine 2 MG/ML Syringe IVPUSH ONE (18:13)
[2019-09-21] MEDS: Sodium Chloride 0.9% 10 ML Syringe FLUSH PRN ×3 (18:23→18:46)
[2019-09-21] MEDS ORDERED: LORazepam 2 MG/ML SDV IVPUSH ONE (18:25)
[2019-09-21] MEDS ORDERED: Magnesium Oxide 400 MG Tab PO ONE (18:34)
[2019-09-21] MEDS ORDERED: Lactated Ringers 1,000 ML IV ONE (18:35)
--- NOTE | 2019-09-21 18:42 | EDM.PDOC ---
ED HPI GENERAL MEDICAL PROBLEM - General Chief Complaint: Chest Pain Stated Complaint: chest pain Time Seen by Provider: 09/21/19 17:48 Source of Information: Reports: Patient History Limitations: Reports: No Limitations - History of Present Illness INITIAL COMMENTS - FREE TEXT/NARRATIVE: Patient comes to ER with complaint of sudden chest pain on left side that started around 3pm. Gradually has worsened. At times pain has gone into left side of neck and left shoulder. No change in pain with movement/raising arms above shoulders. Some worsening with deep breath. No complaint of SOB/diaphoresis/nausea/emesis. No recent illness/cough. Is a smoker. Was light headed at times after pain worsened. No history of [place]/CAD. No similar pain in past. 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: Aspirin, Heat Therapy, Other Medication(s), Other (see below) Other Treatments LINOLEUM LAYER APPRENTICE: Tums Chest Pain Score (Numeric/FACES): 10 - Related Data Allergies Allergy/AdvReac Type Severity Reaction Status Date / Time adhesive tape Allergy Redness Verified 09/21/19 17:34 gluten Allergy Diarrhea, Verified 03/26/18 22:48 severe abdominal pain Home Meds: Home Meds SUMAtriptan Succinate [Imitrex] 4 mg SQ ASDIRECTED PRN 09/04/15 [History] LORazepam 0.5 mg PO DAILY 12/25/17 [History] Lidocaine [Anecream] 1 applic TP ASDIRECTED PRN 03/26/18 [History] Phentermine HCl 18.75 mg PO DAILY 03/26/18 [History] Topiramate 2 tab PO BID 03/26/18 [History] Past Medical History HEENT History: Reports: Allergic Rhinitis, Impaired Vision, Sinusitis, Other ( See Below) Other HEENT History: Allergic rhinitis and sinusitis. Patient wears glasses. Cardiovascular History: Reports: Other (See Below) Other Cardiovascular History: She does not know cholesterol status with history of fatty liver. Borderline anterior wall cardiac ischemia by EKG with no workup. Chronic hypotension. Respiratory History: Reports: Intubation, Previous, Pneumothorax (diagnosed 09/21) Gastrointestinal History: Reports: Celiac Disease, Cholelithiasis, Chronic Constipation, Chronic Diarrhea, Diverticulosis, GERD, Other (See Below) Other Gastrointestinal History: Diarrhea with gluten exposure. Despite previous medical records patient denies known inflammatory bowel disease. History of recurrent diverticulitis including on 07/13/16 and 12/25/17 with sigmoid diverticulosis by colonoscopy as below. GERD with esophagitis. Fatty liver. Genitourinary History: Reports: Renal Calculus, Other (See Below) Other Genitourinary History: History of urolithiasis in 2012 with spontaneous passageside unknown. LEARNING SERVICES COORDINATOR History: Reports: Dysfunctional Uterine Bleeding, Fibroids, , Spontaneous Other LEARNING SERVICES COORDINATOR History: Surgical menopause secondary to right ovarian cancer as below. Hypotension with last 2 pregnancies. SAB during first trimester with D&C as below. Otherwise Full term without complications during pregnancies or deliveries. Fibrocystic breast disease. Musculoskeletal History: Reports: Arthritis, Back Pain, Chronic, Fracture, Osteoarthritis, Other (See Below) Other Musculoskeletal History: Gliosis with chronic low back pain. Fracture of the right thumb in 1988. Neurological History: Reports: Headaches, Chronic, Migraines, Seizure, Other ( See Below) Other Neuro History: Unknown type of seizures during teenage years with last seizure at age 20. 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 Acne vulgaris. - Infectious Disease History Infectious Disease History: Reports: Chicken Pox, Mononucleosis, MRSA, Shingles - Past Surgical History Head Surgeries/Procedures: Reports: None HEENT Surgical History: Reports: Oral Surgery, Other (See Below) Other HEENT Surgeries/Procedures: [place] teeth extraction 4 at age 24. Cardiovascular Surgical History: Reports: None Respiratory Surgical History: Reports: None GI Surgical History: Reports: Cholecystectomy, Colonoscopy, EGD, Other (See Below) Other GI Surgeries/Procedures: Laparoscopic cholecystectomy in 2014. EGD with biopsy on 03/25/15. Colonoscopy on 11/25/15. Female Surgical History: Reports: D&C, Hysterectomy, Salpingo-Oophorectomy, Other (See Below) Other Female Surgeries/Procedures: Complete hysterectomy with right-sided salpingo-oophorectomy secondary to ovarian cancer in 2007. D&C in 1993 secondary to SAB as above. Endocrine Surgical History: Reports: None Neurological Surgical History: Reports: None Musculoskeletal Surgical History: Reports: None Oncologic Surgical History: Reports: None Dermatological Surgical History: Reports: None - Past Imaging History Past Imaging History: Reports: CAT Scan (CT of the head on 03/25/14. CT of the abdomen and pelvis with contrast last on 12/25/17 with previous evaluations on , 07/13/16, 05/12/16 and 06/02/15), Mammogram (Last mammogram on 05/17/17.), MRI (MRI of the lumbar spine on 07/19/15, 04/28/14, and 04/21/14.), Ultrasound ( Pelvic ultrasounds on 12/25/17 and 03/01/17. Bilateral renal ultrasound on . 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 Denies : Wheezing, Cough, Sputum, Hemoptysis Cardiovascular: Reports: Chest Pain, Lightheadedness. Denies: Dyspnea on Exertion, Edema, Palpitations, Syncope GI/Abdominal: Reports: No Symptoms : Reports: No Symptoms Musculoskeletal: Reports: Other (left shoulder and neck pain) Skin: Reports: No Symptoms Neurological: Reports: Dizziness, Difficulty Walking (gets lightheaded). Denies : Confusion, Headache, Numbness, Paresthesia, Change in Speech, Gait Disturbance Psychiatric: Reports: No Symptoms ED EXAM, GENERAL - Physical Exam Exam: See Below Exam Limited By: No Limitations General Appearance: Alert, Anxious, Moderate Distress Eye Exam: Bilateral Eye: EOMI, PERRL Ears: Normal External Exam Nose: No: Nasal Deformity, Nasal Swelling, Nasal Drainage Throat/Mouth: Normal Inspection, Normal Lips, Normal Voice, No Airway Compromise Head: Atraumatic, Normocephalic Neck: Normal Inspection, Supple, Non-Tender, Full Range of Motion Respiratory/Chest: No Respiratory Distress, Lungs Clear, No Accessory Muscle Use , Chest Non-Tender, Other (No obvious diminished breath sounds on ascultation except for most superior portion of left lung posteriorly) Cardiovascular: Normal Peripheral Pulses, No Murmur, Tachycardia GI/Abdominal: Normal Bowel Sounds, Soft, Non-Tender, No Distention (Female) Exam: Deferred Rectal (Female) Exam: Deferred Back Exam: Normal Inspection Extremities: Normal Inspection, Normal Range of Motion, Normal Capillary Refill Neurological: Alert, Oriented, Normal Cognition Psychiatric: Anxious Skin Exam: Warm, Dry, Intact, Normal Color EKG INTERPRETATION EKG Date: 09/21/19 Time: 17:22 Rhythm: NSR Rate (Beats/Min): 99 [place]: Normal P-Wave: Present QRS: Normal ST-T: Normal QT: Normal Course - Vital Signs Last Recorded V/S: Last Vital Signs Temp 36.7 C 09/21/19 17:40 Pulse 103 H 09/21/19 17:40 Resp 18 09/21/19 17:40 BP 88/56 L 09/21/19 18:18 Pulse Ox 100 09/21/19 17:40 - Orders/Labs/Meds Orders: Active Orders 24 hr Category Date Time Status EKG Documentation Completion [RC] ASDIRECTED Care 09/21/19 18:16 Active Chest 2V [CR] Stat Exams 09/21/19 17:53 Taken Sodium Chloride 0.9% [Normal Saline] 1,000 ml Med 09/21/19 18:13 Ordered IV .BOLUS Sodium Chloride 0.9% [Saline Flush] Med 09/21/19 18:22 Active 10 ml FLUSH ASDIRECTED PRN Medication Orders Sodium Chloride (Normal Saline) 1,000 mls @ 999 mls/hr IV .BOLUS ONE Stop: 09/21/19 19:13 Last Admin: 09/21/19 18:18 Dose: 999 mls/hr Sodium Chloride (Saline Flush) 10 ml FLUSH ASDIRECTED PRN PRN Reason: keep vein open, flush meds Last Admin: 09/21/19 18:24 Dose: 10 ml Admin: 09/21/19 18:23 Dose: 10 ml Labs: Laboratory Tests 09/21/19 09/21/19 09/21/19 Range/Units 17:30 17:30 17:30 WBC (4.0-10.2) K/uL RBC (3.77-5.09) M/uL Hgb (11.7-15.5) g/dL Hct (34.0-46.0) % MCV (84.0-98.0) fL MCH (28.2-33.3) pg MCHC (31.7-36.0) g/dL RDW (11.2-14.1) % Plt Count (150-350) K/uL Neut % (Auto) (45.0-80.0) % Lymph % (Auto) (10.0-50.0) % [place] % (Auto) (2.0-14.0) % Eos % (Auto) (0.0-5.0) % Baso % (Auto) (0.0-2.0) % Neut # (Auto) (1.40-7.00) K/uL Lymph # (Auto) (0.50-3.50) K/uL [place] # (Auto) (0.00-1.00) K/uL Eos # (Auto) (0.00-0.50) K/uL Baso # (Auto) (0.00-0.20) K/uL PT 11.3 (9.5-12.0) SEC INR 1.1 APTT 29.5 (21.0-31.3) SEC D-Dimer, Quantitative 168 (0-400) ng/mL Sodium 146 H (136-145) mmol/L Potassium 3.6 (3.5-5.1) mmol/L Chloride 110 H (98-107) mmol/L Carbon Dioxide 24.4 (21.0-32.0) mmol/L BUN 12 (7-18) mg/dL Creatinine 0.73 (0.51-1.17) mg/dL Est Cr Clr Drug Dosing 78.81 mL/min Estimated GFR (MDRD) > 60 mL/min Glucose 110 H (74-106) mg/dL Lactic Acid (0.4-2.0) mmol/L Calcium 8.8 (8.5-10.1) mg/dL Magnesium 1.7 L (1.8-2.4) mg/dL Total Bilirubin 0.3 (0.2-1.0) mg/dL AST 15 (15-37) U/L ALT 20 (12-78) U/L Alkaline Phosphatase 67 (46-116) IU/L Creatine Kinase 84 (26-308) U/L Creatine Kinase Index 1.1 (0.0-2.5) % CK-MB (CK-2) 0.90 (0.00-3.60) ng/mL Troponin I 0.000 (0.000-0.056) ng/mL NT-Pro-B Natriuret Pep 30 (0-125) pg/mL Total Protein 6.8 (6.4-8.2) g/dL Albumin 3.6 (3.4-5.0) g/dL 09/21/19 09/21/19 Range/Units 17:30 17:30 WBC 5.5 (4.0-10.2) K/uL RBC 4.70 (3.77-5.09) M/uL Hgb 13.7 D (11.7-15.5) g/dL Hct 40.4 (34.0-46.0) % MCV 86.0 (84.0-98.0) fL MCH 29.1 (28.2-33.3) pg MCHC 33.9 (31.7-36.0) g/dL RDW 12.7 (11.2-14.1) % Plt Count 209 (150-350) K/uL Neut % (Auto) 56.5 (45.0-80.0) % Lymph % (Auto) 31.3 (10.0-50.0) % [place] % (Auto) 10.0 (2.0-14.0) % Eos % (Auto) 1.8 (0.0-5.0) % Baso % (Auto) 0.4 (0.0-2.0) % Neut # (Auto) 3.12 (1.40-7.00) K/uL Lymph # (Auto) 1.73 (0.50-3.50) K/uL [place] # (Auto) 0.55 (0.00-1.00) K/uL Eos # (Auto) 0.10 (0.00-0.50) K/uL Baso # (Auto) 0.02 (0.00-0.20) K/uL PT (9.5-12.0) SEC INR APTT (21.0-31.3) SEC D-Dimer, Quantitative (0-400) ng/mL Sodium (136-145) mmol/L Potassium (3.5-5.1) mmol/L Chloride (98-107) mmol/L Carbon Dioxide (21.0-32.0) mmol/L BUN (7-18) mg/dL Creatinine (0.51-1.17) mg/dL Est Cr Clr Drug Dosing mL/min Estimated GFR (MDRD) mL/min Glucose (74-106) mg/dL Lactic Acid 0.7 (0.4-2.0) mmol/L Calcium (8.5-10.1) mg/dL Magnesium (1.8-2.4) mg/dL Total Bilirubin (0.2-1.0) mg/dL AST (15-37) U/L ALT (12-78) U/L Alkaline Phosphatase (46-116) IU/L Creatine Kinase (26-308) U/L Creatine Kinase Index (0.0-2.5) % CK-MB (CK-2) (0.00-3.60) ng/mL Troponin I (0.000-0.056) ng/mL NT-Pro-B Natriuret Pep (0-125) pg/mL Total Protein (6.4-8.2) g/dL Albumin (3.4-5.0) g/dL Meds: Medications Generic Name Dose Route Start Last Admin Trade Name Freq PRN Reason Stop Dose Admin Sodium Chloride 1,000 mls @ 999 mls/hr 12/08/19 18:13 09/21/19 18:18 Normal Saline IV 09/21/19 19:13 999 mls/hr .BOLUS ONE Administration Sodium Chloride 10 ml 09/21/19 18:22 09/21/19 18:24 Saline Flush FLUSH 10 ml ASDIRECTED PRN Administration keep vein open, flush meds Discontinued Medications Generic Name Dose Route Start Last Admin Trade Name Kade PRN Reason Stop Dose Admin Lorazepam 0.5 mg 09/21/19 18:25 Ativan IVPUSH 09/21/19 18:26 ONETIME ONE Morphine Sulfate 4 mg 09/21/19 18:13 09/21/19 18:20 Morphine IVPUSH 09/21/19 18:14 4 mg ONETIME ONE Administration Nitroglycerin 0.4 mg 09/21/19 17:52 09/21/19 18:18 Nitrostat SL 09/21/19 17:53 Not Given ONETIME ONE Ondansetron HCl 4 mg 09/21/19 18:13 09/21/19 18:20 Zofran IVPUSH 09/21/19 18:14 4 mg ONETIME ONE Administration - Radiology Interpretation Free Text/Narrative:: Chest xray showed pneumothorax on left, confirmed with Radiology, apex. No midline shift - Re-Assessments/Exams Free Text/Narrative Re-Assessment/Exam: Chest pain protocol initiated. EKG showed no acute ischemic changes. Pneumothorax identified on Xray early in patient's stay. Nitroglycerin SL canceled. Images sent to [facility]. Patient reported that her usual systolic BP is in 90s/low 100s, thus appears to have stable BP per history. Vital signs stable. O2 sats 100% on room air/RR 18 IV fluids given. Initially NS but changed to LR when labs revealed elevated Na and Cl level. Ativan and MS for comfort. Call placed to [facility] and discussed/reviewed patient with from ER. Given normal vital signs, smaller pneumo size, and no midline shift, it was determined that patient is not in need of acute intervention such as chest tube at this time. Remaining labs overall unremarkable. Patient sent by [facility] to [facility]. Departure - Departure Time of Disposition: 18:55 Disposition: DC/Tfer to Acute Hospital 02 Condition: Good Clinical Impression: Hypomagnesemia Pneumothorax Qualifiers: Pneumothorax type: spontaneous, primary Qualified Code(s): J93.11 - Primary spontaneous pneumothorax - Discharge Information *PRESCRIPTION DRUG MONITORING PROGRAM REVIEWED*: Not Applicable *COPY OF PRESCRIPTION DRUG MONITORING REPORT IN PATIENT HENNY: Not Applicable - My Orders Last 24 Hours: My Active Orders 09/21/19 17:53 Chest 2V [CR] Stat 09/21/19 18:13 Sodium Chloride 0.9% [Normal Saline] 1,000 ml IV .BOLUS 09/21/19 18:16 EKG Documentation Completion [RC] ASDIRECTED 09/21/19 18:22 Sodium Chloride 0.9% [Saline Flush] 10 ml FLUSH ASDIRECTED PRN - Assessment/Plan Last 24 Hours: My Active Orders 09/21/19 17:53 Chest 2V [CR] Stat 09/21/19 18:13 Sodium Chloride 0.9% [Normal Saline] 1,000 ml IV .BOLUS 09/21/19 18:16 EKG Documentation Completion [RC] ASDIRECTED 09/21/19 18:22 Sodium Chloride 0.9% [Saline Flush] 10 ml FLUSH ASDIRECTED PRN
[2019-09-21] MEDS ORDERED: fentaNYL 100 MCG/2 ML SDV IVPUSH ONE (18:57)
[2019-09-21 19:56] VITALS: BP 107/66; PULSE 96
== END 2019-09-21 19:30 ==
LOC: LL.ED 17:27
DX: J93.11 Primary spontaneous pneumothorax (principal); E83.42 Hypomagnesemia
CPT/HCPCS: 36415; 71046; 80053; 82550; 82553; 83605; 83735; 83880; 84484; 85025; 85379; 85610; 85730; 93005; 96361; 96374; 96375; 99285-25; A9270-GY; J2060; J2270; J2405; J3010; J7030; J7120

== ENCOUNTER 2021-01-24 01:04 | Emergency (ER) | payer MEDICAID, OTHER ==
[2021-01-24] MEDS ORDERED: Lactated Ringers 1,000 ML IV ONE (01:10)
[2021-01-24] MEDS ORDERED: Sodium Chloride 0.9% 10 ML Syringe FLUSH PRN (01:10)
[2021-01-24] MEDS ORDERED: Metoclopramide 10 MG/2 ML SDV IVPUSH ONE (01:10)
[2021-01-24] MEDS ORDERED: diphenhydrAMINE 50 MG/ML SDV IVPUSH ONE (01:10)
--- NOTE | 2021-01-24 01:14 | EDM.PDOC ---
ED HPI GENERAL MEDICAL PROBLEM - General Chief Complaint: Headache Stated Complaint: MIGRAINE Time Seen by Provider: 01/24/21 01:05 Source of Information: Reports: Patient, Family History Limitations: Reports: No Limitations - History of Present Illness INITIAL COMMENTS - FREE TEXT/NARRATIVE: Patient comes emergency department today from home with complaints of the worst migraine ever. This patient relates that she was sleeping and suddenly had a instantaneous severe headache on the left frontal region. It is throbbing. She had no symptoms prior to the development of her migraine. She has a typical migraine patient who takes Topamax on the daily. She usually has a prodromal or aura type sensation before she has a migraine she had none of that this time. This is the worst migraine headache she is ever had. She denies any recent falls or head trauma. No double vision. No paresthesias of her upper or lower extremities. No diplopia. No change in the functionality of her upper or lower extremities. She not tried anything for pain prior to arrival. She has nausea without vomiting. Photophobia and phonophobia. No COVID exposure no COVID symptoms. Left Forehead Pain Score (Numeric/FACES): 10 - Related Data Allergies Allergy/AdvReac Type Severity Reaction Status Date / Time adhesive tape Allergy Redness Verified 01/24/21 01:52 gluten Allergy Diarrhea, Verified 01/24/21 01:52 severe abdominal pain Home Meds: Home Meds SUMAtriptan succinate [Imitrex] 4 mg SQ ASDIRECTED PRN 09/04/15 [History] LORazepam 0.5 mg PO DAILY 12/25/17 [History] Lidocaine [Anecream] 1 applic TP ASDIRECTED PRN 03/26/18 [History] Phentermine HCl 18.75 mg PO DAILY 03/26/18 [History] Topiramate 2 tab PO BID 03/26/18 [History] Past Medical History HEENT History: Reports: Allergic Rhinitis, Impaired Vision, Sinusitis, Other (See Below) Other HEENT History: Allergic rhinitis and sinusitis. Patient wears glasses. Cardiovascular History: Reports: Other (See Below) Other Cardiovascular History: She does not know cholesterol status with history of fatty liver. Borderline anterior wall cardiac ischemia by EKG with no workup. Chronic hypotension. Respiratory History: Reports: Intubation, Previous, Pneumothorax (diagnosed 09/21/19) Gastrointestinal History: Reports: Celiac Disease, Cholelithiasis, Chronic Constipation, Chronic Diarrhea, Diverticulosis, GERD, Other (See Below) Other Gastrointestinal History: Diarrhea with gluten exposure. Despite previous medical records patient denies known inflammatory bowel disease. History of recurrent diverticulitis including on 07/13/16 and 12/25/17 with sigmoid diverticulosis by colonoscopy as below. GERD with esophagitis. Fatty liver. Genitourinary History: Reports: Renal Calculus, Other (See Below) Other Genitourinary History: History of urolithiasis in 2012 with spontaneous passageside unknown. HEAD ORTHOPEDIC TEAM PHYSICIAN History: Reports: Dysfunctional Uterine Bleeding, Fibroids, , Spontaneous Other HEAD ORTHOPEDIC TEAM PHYSICIAN History: Surgical menopause secondary to right ovarian cancer as below. Hypotension with last 2 pregnancies. SAB during first trimester with D&C as below. Otherwise Full term without complications during pregnancies or deliveries. Fibrocystic breast disease. Musculoskeletal History: Reports: Arthritis, Back Pain, Chronic, Fracture, Osteoarthritis, Other (See Below) Other Musculoskeletal History: Gliosis with chronic low back pain. Fracture of the right thumb in 1988. Neurological History: Reports: Headaches, Chronic, Migraines, Seizure, Other (See Below) Other Neuro History: Unknown type of seizures during teenage years with last seizure at age 20. 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 Acne vulgaris. - Infectious Disease History Infectious Disease History: Reports: Chicken Pox, Mononucleosis, MRSA, Shingles - Past Surgical History Head Surgeries/Procedures: Reports: None HEENT Surgical History: Reports: Oral Surgery, Other (See Below) Other HEENT Surgeries/Procedures: [place] teeth extraction 4 at age 24. Cardiovascular Surgical History: Reports: None Respiratory Surgical History: Reports: None GI Surgical History: Reports: Cholecystectomy, Colonoscopy, EGD, Other (See Below) Other GI Surgeries/Procedures: Laparoscopic cholecystectomy in 2014. EGD with biopsy on 03/25/15. Colonoscopy on 11/25/15. Female Surgical History: Reports: D&C, Hysterectomy, Salpingo-Oophorectomy, Other (See Below) Other Female Surgeries/Procedures: Complete hysterectomy with right-sided salpingo-oophorectomy secondary to ovarian cancer in 2007. D&C in 1993 secondary to SAB as above. Endocrine Surgical History: Reports: None Neurological Surgical History: Reports: None Musculoskeletal Surgical History: Reports: None Oncologic Surgical History: Reports: None Dermatological Surgical History: Reports: None - Past Imaging History Past Imaging History: Reports: CAT Scan (CT of the head on 03/25/14. CT of the abdomen and pelvis with contrast last on 12/25/17 with previous evaluations on 07/27/16, 07/13/16, 05/12/16 and 06/02/15), Mammogram (Last mammogram on 05/17/17.), MRI (MRI of the lumbar spine on 07/19/15, 04/28/14, and 04/21/14.), Ultrasound (Pelvic ultrasounds on 12/25/17 and 03/01/17. Bilateral renal ultrasound on 07/09/17. 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 - Physical Exam Exam: See Below Exam Limited By: No Limitations General Appearance: Alert, WD/WN, No Apparent Distress Eye Exam: Bilateral Eye: EOMI, Normal Inspection, PERRL Ears: Normal External Exam, Normal TMs Nose: Normal Inspection Throat/Mouth: Normal Inspection, Normal Lips Head Exam: Atraumatic, Normocephalic Neck: Normal Inspection, Supple, Non-Tender, Full Range of Motion Respiratory/Chest: No Respiratory Distress Cardiovascular: Normal Peripheral Pulses, Regular Rate, Rhythm GI/Abdominal: Normal Bowel Sounds, Soft (Female) Exam: Deferred Rectal (Female) Exam: Deferred Neuro Exam (Abbreviated): Alert, Oriented, CN II-XII Intact, Normal Cognition, No Motor/Sensory Deficits Extremities: Normal Inspection Psychiatric: Normal Affect, Normal Mood Skin Exam: Warm, Intact, Normal Color, No Rash Course - Vital Signs Last Recorded V/S: Last Vital Signs Temp 97.4 F 01/24/21 01:08 Pulse 95 01/24/21 01:08 Resp 12 01/24/21 01:08 BP 108/72 01/24/21 01:08 Pulse Ox 100 01/24/21 01:08 - Orders/Labs/Meds Orders: Active Orders 24 hr Category Date Time Status Peripheral IV Care [RC] . DIRECTED Care 01/24/21 01:10 Ordered Head wo Cont [CT] Stat Exams 01/24/21 01:10 Ordered Sodium Chloride 0.9% [Saline Flush] Med 01/24/21 01:10 Ordered 10 ml FLUSH ASDIRECTED PRN Peripheral IV Insertion Adult [OM.PC] Stat Oth 01/24/21 01:10 Ordered Medication Orders Sodium Chloride (Sodium Chloride 0.9% 10 Ml Syringe) 10 ml FLUSH ASDIRECTED PRN PRN Reason: Keep Vein Open Meds: Medications Generic Name Dose Route Start Last Admin Trade Name Freq PRN Reason Stop Dose Admin Sodium Chloride 10 ml 01/24/21 01:10 Sodium Chloride 0.9% 10 Ml Syringe FLUSH ASDIRECTED PRN Keep Vein Open Discontinued Medications Generic Name Dose Route Start Last Admin Trade Name Freq PRN Reason Stop Dose Admin Diphenhydramine HCl 50 mg 01/24/21 01:10 01/24/21 01:30 Diphenhydramine 50 Mg/Ml Sdv IVPUSH 01/24/21 01:11 50 mg ONETIME ONE Administration Lactated Ringer's 1,000 mls @ 1,000 mls/hr 01/24/21 01:10 01/24/21 01:37 Ringers, Lactated IV 01/24/21 02:09 1,000 mls/hr .BOLUS ONE Administration Ketorolac Tromethamine 30 mg 01/24/21 01:32 01/24/21 01:38 Ketorolac 30 Mg/Ml Sdv IVPUSH 01/24/21 01:33 30 mg ONETIME ONE Administration Metoclopramide HCl 10 mg 01/24/21 01:10 01/24/21 01:30 Metoclopramide 10 Mg/2 Ml Sdv IVPUSH 01/24/21 01:11 10 mg ONETIME ONE Administration - Radiology Interpretation Free Text/Narrative:: CT of the head per radiology shows no acute intracranial process. There is no acute infarct. There is no acute intracranial hemorrhage. - Re-Assessments/Exams Free Text/Narrative Re-Assessment/Exam: 01/24/21 01:13 Although this is a chronic migraine type patient. She has never had such an abrupt or thunderclap headache in the past and this is the worse headache/migraine that she has ever had. WE will complete a CT of the head due t o these concerning reported symptoms. IV LV 1 liter wide open. Benadryl 50mg IVP Reglan 10mg IVP. 01/24/21 02:[address] was reviewed she received 30mg of Ketorolac IV She had moderate relief of her pain. Compazine 5mg IVP She has much improvement of her symptoms. Repeat neurological exam unchanged. Will discharge home at this time. She is comfortable with this plan and her questions answered. Departure - Departure Time of Disposition: 02:40 Disposition: Home, Self-Care 01 Clinical Impression: Migraine headache Qualifiers: Migraine type: without aura Status migrainosus presence: without status migrainosus Intractability: not intractable Qualified Code(s): G43.009 - Migraine without aura, not intractable, without status migrainosus - Discharge Information *PRESCRIPTION DRUG MONITORING PROGRAM REVIEWED*: Not Applicable *COPY OF PRESCRIPTION DRUG MONITORING REPORT IN PATIENT HENNY: Not Applicable Instructions: Migraine Headache, [id number], Pain Medicine Instructions, [id number] Forms: ED Department Discharge Additional Instructions: Home rest as much as possible the next few days. Make sure and drink plenty of fluids. Decrease stimulation to the brain from lights and sounds. No backlit tablet phones etc. Do not watch TV in a dark room. Tylenol as needed for headache. Return to the ED if new or worsening symptoms. Follow up with PCP in the next 2-4 days if not improving sooner if worse. Sepsis Event Note (ED) - Focused Exam Vital Signs: Vital Signs Temp Pulse Resp BP Pulse Ox 01/24/21 01:08 97.4 F 95 12 108/72 100 - My Orders Last 24 Hours: My Active Orders 01/24/21 01:10 Peripheral IV Care [RC] . DIRECTED Head wo Cont [CT] Stat Sodium Chloride 0.9% [Saline Flush] 10 ml FLUSH ASDIRECTED PRN Peripheral IV Insertion Adult [OM.PC] Stat - Assessment/Plan Last 24 Hours: My Active Orders 01/24/21 01:10 Peripheral IV Care [RC] . DIRECTED Head wo Cont [CT] Stat Sodium Chloride 0.9% [Saline Flush] 10 ml FLUSH ASDIRECTED PRN Peripheral IV Insertion Adult [OM.PC] Stat
[2021-01-24 01:17] VITALS: BP 108/72; PULSE 95
[2021-01-24] MEDS ORDERED: Ketorolac 30 MG/ML SDV IVPUSH ONE (01:32)
[2021-01-24] MEDS ORDERED: Prochlorperazine 10 MG/2 ML SDV IVPUSH ONE (02:22)
== END 2021-01-24 02:45 | disposition home or self-care (01) ==
LOC: LL.ED 01:04
DX: G43.009 Migraine without aura, not intractable, without status migrainosus (principal); R56.9 Unspecified convulsions; Z91.048 Other nonmedicinal substance allergy status; Z79.899 Other long term (current) drug therapy
CPT/HCPCS: 70450; 96374; 96375; 99283-25; J0780; J1200; J1885; J2765; J7120

== ENCOUNTER 2021-03-24 11:42 | Emergency (ER) | payer OTHER ==
[2021-03-24] MEDS: diphenhydrAMINE 50 MG/ML SDV IM ONE (12:06)
[2021-03-24] MEDS: Ketorolac 30 MG/ML SDV IM ONE (12:07)
[2021-03-24] MEDS: Metoclopramide 10 MG/2 ML SDV IM ONE (12:07)
[2021-03-24 14:29] VITALS: BP 132/56; PULSE 82
--- NOTE | 2021-03-24 22:34 | EDM.PDOC ---
ED HPI GENERAL MEDICAL PROBLEM - General Chief Complaint: General Stated Complaint: chest pain,migraine Time Seen by Provider: 03/24/21 11:50 Source of Information: Reports: Patient History Limitations: Reports: No Limitations - History of Present Illness INITIAL COMMENTS - FREE TEXT/NARRATIVE: Pt. presents to ER with complaints of migraine headache that woke her from sleep this AM. Pt. has a longstanding history of migraine headache in the past. She states that the presentation is similar but more severe. Denies any fever or chills. No vision loss or change. Denies any recent head trauma. Pt. complains of photophobia. She takes topamax daily which does help with the frequency of attacks. She states that he does take imitrex as well, but didn't today and the symptoms were too far along in severity for this to work. She did take a dose of benadryl which did not help, either. Pt. reports that she is also experiencing sharp respirophasic L sided anterior to posterior chest pain that she has had intermittently in the past. Pt. is concerned because she has a history of spontaneous pneumothorax in the past. She denies any substernal chest pain. No jaw, arm, neck or back pain. Denies any shortness of breath. No hemoptysis. Onset: Today Onset Date: 03/24/21 Location: Reports: Head, Chest Quality: Reports: Ache, Sharp Associated Symptoms: Reports: Chest Pain, Headaches Frontal Headache Pain Score (Numeric/FACES): 10 - Related Data Allergies Allergy/AdvReac Type Severity Reaction Status Date / Time adhesive tape Allergy Redness Verified 03/24/21 12:32 gluten Allergy Diarrhea, Verified 03/24/21 12:32 severe abdominal pain Home Meds: Home Meds SUMAtriptan succinate [Imitrex] 4 mg SQ ASDIRECTED PRN 09/04/15 [History] Topiramate 4 tab PO BID 03/26/18 [History] Doxycycline [Vibramycin] 100 mg PO DAILY PRN 03/24/21 [History] busPIRone [Buspar] 5 mg PO BID 03/24/21 [History] Past Medical History HEENT History: Reports: Allergic Rhinitis, Impaired Vision, Sinusitis, Other (See Below) Other HEENT History: Allergic rhinitis and sinusitis. Patient wears glasses. Cardiovascular History: Reports: Other (See Below) Other Cardiovascular History: She does not know cholesterol status with history of fatty liver. Borderline anterior wall cardiac ischemia by EKG with no workup. Chronic hypotension. Respiratory History: Reports: Intubation, Previous, Pneumothorax Gastrointestinal History: Reports: Celiac Disease, Cholelithiasis, Chronic Constipation, Chronic Diarrhea, Diverticulosis, GERD, Other (See Below) Other Gastrointestinal History: Diarrhea with gluten exposure. Despite previous medical records patient denies known inflammatory bowel disease. History of recurrent diverticulitis including on 07/13/16 and 12/25/17 with sigmoid diverticulosis by colonoscopy as below. GERD with esophagitis. Fatty liver. Genitourinary History: Reports: Renal Calculus, Other (See Below) Other Genitourinary History: History of urolithiasis in 2012 with spontaneous passageside unknown. CONSUMER INSIGHT ANALYST History: Reports: Dysfunctional Uterine Bleeding, Fibroids, , Spontaneous Other CONSUMER INSIGHT ANALYST History: Surgical menopause secondary to right ovarian cancer as below. Hypotension with last 2 pregnancies. SAB during first trimester with D&C as below. Otherwise Full term without complications during pregnancies or deliveries. Fibrocystic breast disease. Musculoskeletal History: Reports: Arthritis, Back Pain, Chronic, Fracture, Osteoarthritis, Other (See Below) Other Musculoskeletal History: Gliosis with chronic low back pain. Fracture of the right thumb in 1988. Neurological History: Reports: Headaches, Chronic, Migraines, Seizure, Other (See Below) Other Neuro History: Unknown type of seizures during teenage years with last seizure at age 20. 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 Acne vulgaris. - Infectious Disease History Infectious Disease History: Reports: Chicken Pox, Mononucleosis, MRSA, Shingles - Past Surgical History Head Surgeries/Procedures: Reports: None HEENT Surgical History: Reports: Oral Surgery, Other (See Below) Other HEENT Surgeries/Procedures: [place] teeth extraction 4 at age 24. Cardiovascular Surgical History: Reports: None Respiratory Surgical History: Reports: None GI Surgical History: Reports: Cholecystectomy, Colonoscopy, EGD, Other (See Below) Other GI Surgeries/Procedures: Laparoscopic cholecystectomy in 2014. EGD with biopsy on 03/25/15. Colonoscopy on 11/25/15. Female Surgical History: Reports: D&C, Hysterectomy, Salpingo-Oophorectomy, Other (See Below) Other Female Surgeries/Procedures: Complete hysterectomy with right-sided salpingo-oophorectomy secondary to ovarian cancer in 2007. D&C in 1993 secondary to SAB as above. Endocrine Surgical History: Reports: None Neurological Surgical History: Reports: None Musculoskeletal Surgical History: Reports: None Oncologic Surgical History: Reports: None Dermatological Surgical History: Reports: None - Past Imaging History Past Imaging History: Reports: CAT Scan (CT of the head on 03/25/14. CT of the abdomen and pelvis with contrast last on 12/25/17 with previous evaluations on 07/27/16, 07/13/16, 05/12/16 and 06/02/15), Mammogram (Last mammogram on 05/17/17.), MRI (MRI of the lumbar spine on 07/19/15, 04/28/14, and 04/21/14.), Ultrasound ( Pelvic ultrasounds on 12/25/17 and 03/01/17. Bilateral renal ultrasound on 07/09/17. 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 ED EXAM, GENERAL - Physical Exam Exam: See Below Exam Limited By: No Limitations General Appearance: Alert, WD/WN, No Apparent Distress Head: Atraumatic, Normocephalic Neck: Normal Inspection, Supple, Non-Tender, Full Range of Motion Respiratory/Chest: No Respiratory Distress, Lungs Clear, Normal Breath Sounds, No Accessory Muscle Use, Chest Non-Tender Cardiovascular: Normal Peripheral Pulses, Regular Rate, Rhythm, No Edema, No JVD, No Murmur GI/Abdominal: Soft, Non-Tender, No Distention, No Mass (Female) Exam: Deferred Rectal (Female) Exam: Deferred Extremities: Normal Inspection, Normal Range of Motion, Non-Tender, No Pedal Edema, Normal Capillary Refill Neurological: Alert, Oriented, CN II-XII Intact, Normal Cognition, Normal Gait, Normal Reflexes, No Motor/Sensory Deficits Psychiatric: Normal Affect, Normal Mood Course - Vital Signs Last Recorded V/S: Last Vital Signs Temp 36.8 C 03/24/21 11:50 Pulse 82 03/24/21 11:50 Resp 18 03/24/21 11:50 BP 132/56 L 03/24/21 11:50 Pulse Ox 98 03/24/21 11:50 - Orders/Labs/Meds Orders: Active Orders 24 hr Category Date Time Status Chest 2V [CR] Stat Exams 03/24/21 11:43 Taken Meds: Medications Discontinued Medications Generic Name Dose Route Start Last Admin Trade Name Freq PRN Reason Stop Dose Admin Diphenhydramine HCl 50 mg 03/24/21 11:45 03/24/21 12:06 Diphenhydramine 50 Mg/Ml Sdv IM 03/24/21 11:46 50 mg ONETIME ONE Administration Ketorolac Tromethamine 30 mg 03/24/21 11:45 03/24/21 12:07 Ketorolac 30 Mg/Ml Sdv IM 03/24/21 11:46 30 mg ONETIME ONE Administration Metoclopramide HCl 10 mg 03/24/21 11:44 03/24/21 12:07 Metoclopramide 10 Mg/2 Ml Sdv IM 03/24/21 11:45 10 mg ONETIME ONE Administration - Radiology Interpretation Free Text/Narrative:: No pneumothorax or other pathology noted on chest xray Departure - Departure Time of Disposition: 13:00 Disposition: Home, Self-Care 01 Clinical Impression: Atypical chest pain Migraine Qualifiers: Migraine type: without aura Status migrainosus presence: without status migrainosus Intractability: not intractable Qualified Code(s): G43.009 - Migraine without aura, not intractable, without status migrainosus - Discharge Information Instructions: Migraine Headache, [id number] Referrals: Kaitlyn Foley PA [Primary Care Provider] - Forms: ED Department Discharge Additional Instructions: We will call you if there is any concern with the x-ray Continue with your current medications Recheck in clinic in 7-10 days Sepsis Event Note (ED) - Evaluation Sepsis Screening Result: No Definite Risk - Focused Exam Vital Signs: Vital Signs Temp Pulse Resp BP Pulse Ox 03/24/21 11:50 36.8 C 82 18 132/56 L 98 - My Orders Last 24 Hours: My Active Orders 03/24/21 11:43 Chest 2V [CR] Stat - Assessment/Plan Last 24 Hours: My Active Orders 03/24/21 11:43 Chest 2V [CR] Stat Plan: Pt. received IM toradol, benadryl, and reglan. She was observed for a period of time and reported significant improvement in discomfort. Advised to go home and rest. Follow-up in clinic in a week. Return to ER if not gradually improving.
== END 2021-03-24 13:00 | disposition home or self-care (01) ==
LOC: LL.ED 11:42 → SUPCPDRO 11:42 → LL.ED 13:00
DX: G43.009 Migraine without aura, not intractable, without status migrainosus (principal); R07.89 Other chest pain; I10 Essential (primary) hypertension; Z91.048 Other nonmedicinal substance allergy status; Z91.09 Other allergy status, other than to drugs and biological substances
CPT/HCPCS: 71046; 96372; 99284; 99284-25; J1200; J1885; J2765

== ENCOUNTER 2021-06-09 11:15 | Day surgery (SDC) | payer BC, MEDICAID, OTHER ==
[~2021-06-09 11:15] MED LIST: Lactated Ringers 1,000 ML IV SCH; Midazolam 1 MG/ML 2 ML SDV ONE; Propofol 200 MG/20 ML SDV ONE; Sodium Chloride 0.9% 10 ML Syringe FLUSH PRN
[2021-06-09] MEDS ORDERED: Propofol 200 MG/20 ML SDV ONE ×2 (12:05→12:06)
[2021-06-09] MEDS ORDERED: Midazolam 1 MG/ML 2 ML SDV ONE (12:06)
--- NOTE | 2021-06-09 12:13 | PCM.PN ---
- General Info Date of Service: 06/09/21 - Review of Systems Systems Review Comment:: 50-year-old female referred for colonoscopy. She has noticed a recent change in bowel pattern with unexplained profound diarrhea. She is also been having some abdominal cramps. She denies any blood per rectum. She is medically stable to proceed today. Her recent history and physical is reviewed and no significant changes are noted. I have discussed the proposed colonoscopy with the patient. Risks such as but not limited to bleeding and GI injury reviewed. She agrees to proceed. - Patient Data Vitals - Most Recent: Last Vital Signs Temp 98.4 F 06/09/21 11:54 Pulse 88 06/09/21 11:54 Resp 18 06/09/21 11:54 BP 94/65 06/09/21 11:54 Pulse Ox 95 06/09/21 11:54 Weight - Most Recent: 63.049 kg Med Orders - Current: Current Medications Lactated Ringer's (Ringers, Lactated) 1,000 mls @ 125 mls/hr IV ASDIRECTED BRETT Last Admin: 06/09/21 11:36 Dose: 125 mls/hr Documented by: Sodium Chloride (Sodium Chloride 0.9% 10 Ml Syringe) 10 ml FLUSH ASDIRECTED PRN PRN Reason: Keep Vein Open Discontinued Medications Midazolam HCl (Midazolam 1 Mg/Ml 2 Ml Sdv) Confirm Administered Dose 2 mg .ROUTE .STK-MED ONE Stop: 06/09/21 08:43 Propofol (Propofol 200 Mg/20 Ml Sdv) Confirm Administered Dose 200 mg .ROUTE .STK-MED ONE Stop: 06/09/21 08:43 Propofol (Propofol 200 Mg/20 Ml Sdv) Confirm Administered Dose 200 mg .ROUTE .STK-MED ONE Stop: 06/09/21 12:06 Sepsis Event Note - Focused Exam Vital Signs: Vital Signs Temp Pulse Resp BP Pulse Ox 06/09/21 11:54 98.4 F 88 18 94/65 95 - Problem List Review Problem List Initiated/Reviewed/Updated: Yes - Assessment Assessment:: Change in bowel habits with diarrhea - Plan Plan:: Colonoscopy
--- NOTE | 2021-06-09 12:43 | PCM.OPNOTE ---
- General Post-Op/Procedure Note Date of Surgery/Procedure: 06/09/21 Operative Procedure(s): Colonoscopy with Biopsy Findings: Moderate sigmoid diverticulosis without acute inflammation Colon, rectum, and terminal ileum all otherwise appeared normal Pre Op Diagnosis: Diarrhea Post-Op Diagnosis: Sigmoid Diverticulosis Anesthesia Technique: MAC Primary Surgeon: Arturo Gould Pathology: Biopsies of Left and Right Colon EBL in mLs: 2 Complications: None Condition: Good
[2021-06-09] MEDS ORDERED: Morphine 2 MG/ML SYRINGE IVPUSH ONE (14:00)
--- NOTE | 2021-06-09 14:06 | OR ---
Date of Procedure: 06/09/2021 PREOPERATIVE DIAGNOSIS: Change in bowel habits with diarrhea. POSTOPERATIVE DIAGNOSIS: Sigmoid diverticulosis. OPERATION PERFORMED: Colonoscopy with biopsy. INDICATIONS FOR SURGERY: This 50-year-old female has developed significant recent change in bowel patterns with profound unexplained diarrhea. She is referred for diagnostic colonoscopy. FINDINGS: The lining of the patient's colon, rectum, and terminal ileum appeared normal without visible signs of inflammation. There was some medium- sized diverticula in the sigmoid region, but this area did not appear to be acutely inflamed nor was there any visible inflammation or other abnormality seen. DESCRIPTION OF PROCEDURE: The patient was taken to the operating room. She was given intravenous sedation, and with her in the left lateral decubitus position, digital rectal exam was performed showing no rectal masses. The Olympus colonoscope was inserted into the rectum. Retroflexed examination of the rectal canal was performed. The scope was then carefully advanced under direct visualization through the entire length of the colon until the cecum was reached. Cecal acquisition was confirmed by noting the normal internal cecal anatomy including the appendiceal orifice and the ileocecal valve. The light was also noted to transilluminate the abdominal wall in the right lower quadrant. The ileocecal valve was cannulated and the terminal ileum examined and it also appeared normal without visible signs of inflammation. The scope was then slowly withdrawn sequentially re-examining the colonic segments until the entire colon and rectum had been fully examined. Because of the patient's symptoms during withdrawal of the scope, random biopsies were taken of both the right and left colon. After the exam had been completed and with no sign of any complication, the scope was removed and the patient was taken from the operating room in satisfactory condition. ESTIMATED BLOOD LOSS: 2 mL. COMPLICATIONS: None. PROGNOSIS: Good. MICHELLE Gould MD /[id number]
[2021-06-09 16:04] VITALS: BP 110/73; PULSE 78
== END 2021-06-09 14:44 | disposition home or self-care (01) ==
LOC: LL.SDS 11:15
PROVIDERS: ATTEND Surgery
DX: K52.9 Noninfective gastroenteritis and colitis, unspecified (principal); K57.30 Diverticulosis of large intestine without perforation or abscess without bleeding; K63.89 Other specified diseases of intestine; F41.9 Anxiety disorder, unspecified; F33.2 Major depressive disorder, recurrent severe without psychotic features; Q82.8 Other specified congenital malformations of skin; Z91.09 Other allergy status, other than to drugs and biological substances
CPT/HCPCS: 00812; 45380; J2250; J2270; J2704; J7120

== ENCOUNTER 2021-08-05 14:23 | Emergency (ER) | payer OTHER ==
[2021-08-05] MEDS ORDERED: Sodium Chloride 0.9% 10 ML Syringe FLUSH PRN (14:38)
[2021-08-05] MEDS ORDERED: Morphine 4 MG/ML Syringe IVPUSH ONE (14:40)
[2021-08-05] MEDS ORDERED: Ketorolac 15 MG/ML SDV IVPUSH ONE (14:40)
[2021-08-05] MEDS ORDERED: Ondansetron 4 MG/2 ML SDV IVPUSH ONE (15:10)
--- NOTE | 2021-08-05 15:10 | EDM.PDOC ---
ED HPI GENERAL MEDICAL PROBLEM - General Chief Complaint: Abdominal Pain Stated Complaint: Abdominal Pain Time Seen by Provider: 08/05/21 14:45 Source of Information: Reports: Patient History Limitations: Reports: No Limitations - History of Present Illness INITIAL COMMENTS - FREE TEXT/NARRATIVE: Pt. presents to ER with complaints of LLQ abdominal pain. Pt. states that this started gradually this AM. She states that the discomfort was present when she woke up this AM. She states that she had a normal BM yesterday. She denies any history of pervious abdominal surgery, other than gallbladder. Denies any fever or chills. Denies any melena, hematochezia, or hematemesis. No hematuria. Pt. denies any lightheadedness. No weakness, fever, or fatigue. She denies ever experiencing discomfort like this in the past. She states that she has a history of diverticulosis. Onset: Today Onset Date: 08/05/21 Location: Reports: Abdomen Quality: Reports: Sharp Severity: Severe - Related Data Allergies Allergy/AdvReac Type Severity Reaction Status Date / Time adhesive tape Allergy Redness Verified 06/09/21 14:11 gluten Allergy Diarrhea, Verified 06/09/21 14:11 severe abdominal pain Home Meds: Home Meds SUMAtriptan succinate [Imitrex] 4 mg SQ ASDIRECTED PRN 09/04/15 [History] Topiramate 4 tab PO BID 03/26/18 [History] Doxycycline [Vibramycin] 100 mg PO DAILY PRN 03/24/21 [History] busPIRone [Buspar] 10 mg PO BID 03/24/21 [History] Dicyclomine [Bentyl] 10 mg PO TID PRN #15 cap 05/25/21 [Rx] Ondansetron [Zofran ODT] 4 mg PO Q6H PRN #12 tab.dis 05/25/21 [Rx] Galcanezumab-Gnlm [Emgality Syringe] 120 mg SUBCUT Q30D 06/09/21 [History] Indomethacin 50 mg PO TIDMEALS 06/09/21 [History] Past Medical History HEENT History: Reports: Allergic Rhinitis, Impaired Vision, Sinusitis, Other (See Below) Other HEENT History: Allergic rhinitis and sinusitis. Patient wears glasses. Cardiovascular History: Reports: Other (See Below) Other Cardiovascular History: wears glasses Respiratory History: Reports: None Gastrointestinal History: Reports: Celiac Disease Other Gastrointestinal History: Diarrhea with gluten exposure. Despite previous medical records patient denies known inflammatory bowel disease. History of recurrent diverticulitis including on 07/13/16 and 12/25/17 with sigmoid diverticulosis by colonoscopy as below. GERD with esophagitis. Fatty liver. Genitourinary History: Reports: None Other Genitourinary History: History of urolithiasis in 2012 with spontaneous passageside unknown. SIGN FABRICATOR History: Reports: Dysfunctional Uterine Bleeding, Fibroids, , Spontaneous Other SIGN FABRICATOR History: Surgical menopause secondary to right ovarian cancer as below. Hypotension with last 2 pregnancies. SAB during first trimester with D&C as below. Otherwise Full term without complications during pregnancies or deliveries. Fibrocystic breast disease. Musculoskeletal History: Reports: Arthritis, Back Pain, Chronic, Fracture, Osteoarthritis, Other (See Below) Other Musculoskeletal History: Gliosis with chronic low back pain. Fracture of the right thumb in 1988. Neurological History: Reports: None Other Neuro History: Unknown type of seizures during teenage years with last seizure at age 20. 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 Acne vulgaris. - Infectious Disease History Infectious Disease History: Reports: Chicken Pox, Mononucleosis, MRSA, Shingles - Past Surgical History Head Surgeries/Procedures: Reports: None HEENT Surgical History: Reports: Oral Surgery, Other (See Below) Other HEENT Surgeries/Procedures: [place] teeth extraction 4 at age 24. Cardiovascular Surgical History: Reports: None Respiratory Surgical History: Reports: None GI Surgical History: Reports: Cholecystectomy, Colonoscopy, EGD, Other (See Below) Other GI Surgeries/Procedures: Laparoscopic cholecystectomy in 2014. EGD with biopsy on 03/25/15. Colonoscopy on 11/25/15. Female Surgical History: Reports: D&C, Hysterectomy, Salpingo-Oophorectomy, Other (See Below) Other Female Surgeries/Procedures: Complete hysterectomy with right-sided salpingo-oophorectomy secondary to ovarian cancer in 2007. D&C in 1993 secondary to SAB as above. Endocrine Surgical History: Reports: None Neurological Surgical History: Reports: None Musculoskeletal Surgical History: Reports: None Oncologic Surgical History: Reports: None Dermatological Surgical History: Reports: None - Past Imaging History Past Imaging History: Reports: CAT Scan (CT of the head on 03/25/14. CT of the abdomen and pelvis with contrast last on 12/25/17 with previous evaluations on 07/27/16, 07/13/16, 05/12/16 and 06/02/15), Mammogram (Last mammogram on 05/17/17.), MRI (MRI of the lumbar spine on 07/19/15, 04/28/14, and 04/21/14.), Ultrasound (Pelvic ultrasounds on 12/25/17 and 03/01/17. Bilateral renal ultrasound on 07/09/17. 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[employer]) ED ROS GENERAL - Review of Systems Review Of Systems: See Below Constitutional: Reports: No Symptoms HEENT: Reports: No Symptoms Respiratory: Reports: No Symptoms Cardiovascular: Reports: No Symptoms Endocrine: Reports: No Symptoms GI/Abdominal: Reports: Abdominal Pain : Reports: No Symptoms Musculoskeletal: Reports: No Symptoms Skin: Reports: No Symptoms Neurological: Reports: No Symptoms Psychiatric: Reports: No Symptoms Hematologic/Lymphatic: Reports: No Symptoms Immunologic: Reports: No Symptoms ED EXAM, GENERAL - Physical Exam Exam: See Below Exam Limited By: No Limitations General Appearance: Alert, WD/WN, No Apparent Distress Head: Atraumatic, Normocephalic Respiratory/Chest: No Respiratory Distress, Lungs Clear, Normal Breath Sounds, No Accessory Muscle Use, Chest Non-Tender Cardiovascular: Normal Peripheral Pulses, Regular Rate, Rhythm, No Edema, No Gallop, No JVD, No Murmur, No Rub Peripheral Pulses: 4+: Radial (R) GI/Abdominal: Soft, No Organomegaly, No Distention, Tender (LLQ pain, increased with minimal palpation) Rectal (Female) Exam: Deferred Back Exam: Normal Inspection, Full Range of Motion Extremities: Normal Inspection, Normal Range of Motion, Non-Tender, No Pedal Edema, Normal Capillary Refill Neurological: Alert, Oriented, CN II-XII Intact, Normal Cognition, Normal Gait, Normal Reflexes, No Motor/Sensory Deficits Psychiatric: Normal Affect, Normal Mood Skin Exam: Warm, Dry, Intact, Normal Color, No Rash Lymphatic: No Adenopathy Course - Vital Signs Last Recorded V/S: Last Vital Signs Temp 36.7 C 08/05/21 14:30 Pulse 110 H 08/05/21 14:30 Resp 20 08/05/21 14:30 BP 90/62 08/05/21 14:30 Pulse Ox 96 08/05/21 14:30 - Orders/Labs/Meds Orders: Active Orders 24 hr Category Date Time Status Peripheral IV Care [RC] . DIRECTED Care 08/05/21 14:40 Active Abdomen Pelvis w Cont [CT] Stat Exams 08/05/21 15:57 Taken Lactated Ringers [Ringers, Lactated] 1,000 ml Med 08/05/21 15:15 Active IV ASDIRECTED Sodium Chloride 0.9% [Saline Flush] Med 08/05/21 14:38 Active 10 ml FLUSH ASDIRECTED PRN Peripheral IV Insertion Adult [OM.PC] Routine Oth 08/05/21 14:39 Ordered Medication Orders Lactated Ringer's (Ringers, Lactated) 1,000 mls @ 500 mls/hr IV ASDIRECTED BRETT Last Admin: 08/05/21 15:17 Dose: 500 mls/hr Documented by: FIDEL Sodium Chloride (Sodium Chloride 0.9% 10 Ml Syringe) 10 ml FLUSH ASDIRECTED PRN PRN Reason: Keep Vein Open Last Admin: 08/05/21 15:17 Dose: 10 ml Documented by: FIDEL Labs: Laboratory Tests 08/05/21 08/05/21 08/05/21 Range/Units 15:02 15:02 15:02 WBC 9.2 (4.0-10.2) K/uL RBC 4.02 (3.77-5.09) M/uL Hgb 12.2 D (11.7-15.5) g/dL Hct 37.5 (34.0-46.0) % MCV 93.3 D (84.0-98.0) fL MCH 30.3 (28.2-33.3) pg MCHC 32.5 (31.7-36.0) g/dL RDW 13.2 (11.2-14.1) % Plt Count 288 (150-350) K/uL Neut % (Auto) 74.6 (45.0-80.0) % Lymph % (Auto) 12.7 (10.0-50.0) % [place] % (Auto) 12.2 (2.0-14.0) % Eos % (Auto) 0.3 (0.0-5.0) % Baso % (Auto) 0.2 (0.0-2.0) % Neut # (Auto) 6.86 (1.40-7.00) K/uL Lymph # (Auto) 1.17 (0.50-3.50) K/uL [place] # (Auto) 1.12 H (0.00-1.00) K/uL Eos # (Auto) 0.03 (0.00-0.50) K/uL Baso # (Auto) 0.02 (0.00-0.20) K/uL PT 10.3 (9.5-12.0) SEC INR 1.0 APTT 25.9 (24.5-32.8) SEC Sodium 140 (136-145) mmol/L Potassium 3.8 (3.5-5.1) mmol/L Chloride 107 (98-107) mmol/L Carbon Dioxide 22.6 (21.0-32.0) mmol/L Anion Gap 10.4 (7-15) meq/L BUN 12 (7-18) mg/dL Creatinine 0.71 (0.51-1.17) mg/dL Est Cr Clr Drug Dosing TNP Estimated GFR (MDRD) > 60 mL/min Glucose 98 (70-99) mg/dL Calcium 8.6 (8.5-10.1) mg/dL Magnesium 1.9 (1.8-2.4) mg/dL Total Bilirubin 0.8 (0.2-1.0) mg/dL AST 18 (15-37) U/L ALT 39 (12-78) U/L Alkaline Phosphatase 72 (46-116) IU/L C-Reactive Protein 3.1 H (<=0.9) mg/dL Total Protein 6.3 L (6.4-8.2) g/dL Albumin 3.6 (3.4-5.0) g/dL Specimen Type Urine Color Urine Appearance Urine pH (5.0-9.0) Ur Specific [place] (1.005-1.030) Urine Protein (NEGATIVE) mg/dL Urine Glucose (UA) (NEGATIVE) mg/dL Urine Ketones (NEGATIVE) mg/dL Urine Occult Blood (NEGATIVE) Urine Nitrite (NEGATIVE) Urine Bilirubin (NEGATIVE) Urine Urobilinogen (0.2-1.0) E.U./dL Ur Leukocyte Esterase (NEGATIVE) Urine HCG, Qual 08/05/21 08/05/21 Range/Units 16:31 16:31 WBC (4.0-10.2) K/uL RBC (3.77-5.09) M/uL Hgb (11.7-15.5) g/dL Hct (34.0-46.0) % MCV (84.0-98.0) fL MCH (28.2-33.3) pg MCHC (31.7-36.0) g/dL RDW (11.2-14.1) % Plt Count (150-350) K/uL Neut % (Auto) (45.0-80.0) % Lymph % (Auto) (10.0-50.0) % [place] % (Auto) (2.0-14.0) % Eos % (Auto) (0.0-5.0) % Baso % (Auto) (0.0-2.0) % Neut # (Auto) (1.40-7.00) K/uL Lymph # (Auto) (0.50-3.50) K/uL [place] # (Auto) (0.00-1.00) K/uL Eos # (Auto) (0.00-0.50) K/uL Baso # (Auto) (0.00-0.20) K/uL PT (9.5-12.0) SEC INR APTT (24.5-32.8) SEC Sodium (136-145) mmol/L Potassium (3.5-5.1) mmol/L Chloride (98-107) mmol/L Carbon Dioxide (21.0-32.0) mmol/L Anion Gap (7-15) meq/L BUN (7-18) mg/dL Creatinine (0.51-1.17) mg/dL Est Cr Clr Drug Dosing Estimated GFR (MDRD) mL/min Glucose (70-99) mg/dL Calcium (8.5-10.1) mg/dL Magnesium (1.8-2.4) mg/dL Total Bilirubin (0.2-1.0) mg/dL AST (15-37) U/L ALT (12-78) U/L Alkaline Phosphatase (46-116) IU/L C-Reactive Protein (<=0.9) mg/dL Total Protein (6.4-8.2) g/dL Albumin (3.4-5.0) g/dL Specimen Type Urincc Urine Color Yellow Urine Appearance Clear Urine pH 6.0 (5.0-9.0) Ur Specific [place] 1.010 (1.005-1.030) Urine Protein Negative (NEGATIVE) mg/dL Urine Glucose (UA) Negative (NEGATIVE) mg/dL Urine Ketones Negative (NEGATIVE) mg/dL Urine Occult Blood Negative (NEGATIVE) Urine Nitrite Negative (NEGATIVE) Urine Bilirubin Negative (NEGATIVE) Urine Urobilinogen 0.2 (0.2-1.0) E.U./dL Ur Leukocyte Esterase Negative (NEGATIVE) Urine HCG, Qual Negative Meds: Medications Generic Name Dose Route Start Last Admin Trade Name Freq PRN Reason Stop Dose Admin Lactated Ringer's 1,000 mls @ 500 mls/hr 08/05/21 15:15 08/05/21 15:17 Ringers, Lactated IV 500 mls/hr ASDIRECTED BRETT Administration Sodium Chloride 10 ml 08/05/21 14:38 08/05/21 15:17 Sodium Chloride 0.9% 10 Ml Syringe FLUSH 10 ml ASDIRECTED PRN Administration Keep Vein Open Discontinued Medications Generic Name Dose Route Start Last Admin Trade Name Freq PRN Reason Stop Dose Admin Iopamidol 100 ml 08/05/21 16:00 08/05/21 16:23 Iopamidol 612 Mg/Ml 100 Ml Bottle IVPUSH 08/05/21 16:01 100 ml ONETIME STA Administration Ketorolac Tromethamine 15 mg 08/05/21 14:40 08/05/21 15:16 Ketorolac 15 Mg/Ml Sdv IVPUSH 08/05/21 14:41 15 mg ONETIME ONE Administration Ketorolac Tromethamine Confirm 08/05/21 15:12 08/05/21 15:16 Ketorolac 15 Mg/Ml Sdv Administered 08/05/21 15:13 Not Given Dose 15 mg .ROUTE .STK-MED ONE Morphine Sulfate 4 mg 08/05/21 14:40 08/05/21 15:03 Morphine 4 Mg/Ml Syringe IVPUSH 08/05/21 14:41 4 mg ONETIME ONE Administration Ondansetron HCl 4 mg 08/05/21 15:10 08/05/21 15:16 Ondansetron 4 Mg/2 Ml Sdv IVPUSH 08/05/21 15:11 4 mg ONETIME ONE Administration - Radiology Interpretation Free Text/Narrative:: Uncomplicated diverticulitis noted on CT with IV contrast Departure - Departure Time of Disposition: 17:16 Disposition: Home, Self-Care 01 Clinical Impression: Diverticulitis - Discharge Information Instructions: Acetaminophen; Hydrocodone tablets or capsules, Diverticulitis, [id number], Ciprofloxacin tablets, Metronidazole tablets or capsules, Probiotics Referrals: Kaitlyn Foley PA [Primary Care Provider] - Forms: ED Department Discharge Additional Instructions: [place] 5/325mg 1 every 4-6 hours as needed for pain Cipro 500mg 1 twice daily for 10 days Metronidazole 500mg 1 three times daily for 10 days Miralax 17gm once daily. Increase consumption of water. No nuts or seeds Sepsis Event Note (ED) - Focused Exam Vital Signs: Vital Signs Temp Pulse Resp BP Pulse Ox 08/05/21 14:30 36.7 C 110 H 20 90/62 96 - Problem List Review Problem List Initiated/Reviewed/Updated: Yes - My Orders Last 24 Hours: My Active Orders 08/05/21 14:38 Sodium Chloride 0.9% [Saline Flush] 10 ml FLUSH ASDIRECTED PRN 08/05/21 14:39 Peripheral IV Insertion Adult [OM.PC] Routine 08/05/21 14:40 Peripheral IV Care [RC] . DIRECTED 08/05/21 15:15 Lactated Ringers [Ringers, Lactated] 1,000 ml IV ASDIRECTED 08/05/21 15:57 Abdomen Pelvis w Cont [CT] Stat - Assessment/Plan Last 24 Hours: My Active Orders 08/05/21 14:38 Sodium Chloride 0.9% [Saline Flush] 10 ml FLUSH ASDIRECTED PRN 08/05/21 14:39 Peripheral IV Insertion Adult [OM.PC] Routine 08/05/21 14:40 Peripheral IV Care [RC] . DIRECTED 08/05/21 15:15 Lactated Ringers [Ringers, Lactated] 1,000 ml IV ASDIRECTED 08/05/21 15:57 Abdomen Pelvis w Cont [CT] Stat Plan: Discomfort improved somewhat with IV morphine and toradol. She will be started on Cipro 500mg twice daily for 10 days and metronidazole 500mg three times daily for 10 days. She was given a short course of norco 5/325mg 1 every 4-6 hours as needed for pain. Increase consumption of water. Advised to start miralax 17gm once daily. Minimize consumption of nuts and seeds.
[2021-08-05] MEDS ORDERED: Ketorolac 15 MG/ML SDV ONE (15:12)
[2021-08-05] MEDS ORDERED: Lactated Ringers 1,000 ML IV SCH (15:15)
[2021-08-05 15:25] LABS: PTT,PARTIAL THROMBOPLSTIN TIME 25.9 SEC (24.5-32.8)
[2021-08-05 15:30] LABS: ANION GAP 10.4 meq/L (7-15); CHLORIDE,CL 107 mmol/L (98-107); SODIUM,NA 140 mmol/L (136-145)
[2021-08-05] MEDS ORDERED: Iopamidol 612 MG/ML 100 ML Bottle IVPUSH STA (16:00)
[2021-08-06 13:31] VITALS: BP 103/64; PULSE 83
== END 2021-08-05 17:40 | disposition home or self-care (01) ==
LOC: LL.ED 14:23
DX: K57.32 Diverticulitis of large intestine without perforation or abscess without bleeding (principal); Z91.048 Other nonmedicinal substance allergy status; Z91.018 Allergy to other foods
CPT/HCPCS: 36415; 74177; 80053; 81003; 81025; 83735; 85025; 85610; 85730; 86140; 96374; 96375; 99284; J1885; J2270; J2405; J7120; Q9967

== ENCOUNTER 2021-10-23 23:45 | Emergency (ER) | payer MEDICAID, OTHER ==
[2021-10-24 00:11] VITALS: BP 105/66; PULSE 87
[2021-10-24] MEDS ORDERED: Naproxen 250 MG Tab PO ONE (01:11)
[2021-10-24] MEDS: Ibuprofen 600 MG Tab PO ONE (01:18)
[2021-10-24] MEDS: Acetaminophen 500 MG Tab PO ONE (01:19)
== END 2021-10-24 01:25 | disposition home or self-care (01) ==
LOC: LL.ED 23:45
DX: S93.602A Unspecified sprain of left foot, initial encounter (principal); S83.92XA Sprain of unspecified site of left knee, initial encounter; Z91.048 Other nonmedicinal substance allergy status; Z91.018 Allergy to other foods; Z87.891 Personal history of nicotine dependence; W18.09XA Striking against other object with subsequent fall, initial encounter
CPT/HCPCS: 73590; 73630; 99283; A9270

== ENCOUNTER 2021-10-25 19:23 | Emergency (ER) | payer BC, MEDICAID ==
[2021-10-25 19:33] VITALS: BP 123/64
[2021-10-25] MEDS: Sodium Chloride 0.9% 1,000 ML IV ONE (20:17)
[2021-10-25] MEDS: Acetaminophen 325 MG Tab PO ONE (20:22)
[2021-10-25 20:24] LABS: ANION GAP 8.7 meq/L (7-15); CHLORIDE,CL 107 mmol/L (98-107); SODIUM,NA 140 mmol/L (136-145)
[2021-10-25] MEDS: Albuterol/Ipratropium 4 GM Inhalation Spray INH ONE (20:55)
[2021-10-25] MEDS: Morphine 2 MG/ML SYRINGE IVPUSH ONE (20:57)
[2021-10-25] MEDS: Ketorolac 15 MG/ML SDV IVPUSH ONE (20:57)
[2021-10-25] MEDS: Ondansetron 4 MG/2 ML SDV IVPUSH ONE (20:58)
[2021-10-25 21:30] VITALS: PULSE 104
--- NOTE | 2021-10-25 21:30 | EDM.PDOC ---
ED HPI GENERAL MEDICAL PROBLEM - General Chief Complaint: General Stated Complaint: COVID, FEVER, Time Seen by Provider: 10/25/21 19:55 Source of Information: Reports: Patient History Limitations: Reports: No Limitations - History of Present Illness INITIAL COMMENTS - FREE TEXT/NARRATIVE: Patient comes to ER with Covid complaints. Started to feel ill two days ago. Today tested positive for Covid. Had Covid last July and treatment at that time included monoclonals. Has bad headache and body aches. Chills and fever. Cough. Denies shortness of breath. No GI changes such as nausea/emesis/loose stools. No chest pain or abdominal pain. Lungs and sinuses feel irritated. Fatigued. Decreased PO intake. Took Aleve earlier prior to coming to ER. 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 Headache Pain Score (Numeric/FACES): 10 - Related Data Allergies Allergy/AdvReac Type Severity Reaction Status Date / Time adhesive tape Allergy Redness Verified 10/25/21 19:36 gluten Allergy Diarrhea, Verified 10/25/21 19:36 severe abdominal pain Home Meds: Home Meds Topiramate 4 tab PO BID 03/26/18 [History] Doxycycline [Vibramycin] 100 mg PO DAILY PRN 03/24/21 [History] busPIRone [Buspar] 10 mg PO BID 03/24/21 [History] Dicyclomine [Bentyl] 10 mg PO TID PRN #15 cap 05/25/21 [Rx] Ondansetron [Zofran ODT] 4 mg PO Q6H PRN #12 tab.dis 05/25/21 [Rx] Galcanezumab-Gnlm [Emgality Syringe] 120 mg SUBCUT Q30D 06/09/21 [History] Indomethacin 50 mg PO TIDMEALS 06/09/21 [History] Benzonatate [Tessalon Perles] 100 mg PO TID PRN #50 cap 10/25/21 [Rx] Past Medical History HEENT History: Reports: Allergic Rhinitis, Impaired Vision, Sinusitis, Other (See Below) Other HEENT History: Allergic rhinitis and sinusitis. Patient wears glasses. Cardiovascular History: Reports: Other (See Below) Other Cardiovascular History: wears glasses Respiratory History: Reports: None Gastrointestinal History: Reports: Celiac Disease Other Gastrointestinal History: Diarrhea with gluten exposure. Despite previous medical records patient denies known inflammatory bowel disease. History of recurrent diverticulitis including on 07/13/16 and 12/25/17 with sigmoid diverticulosis by colonoscopy as below. GERD with esophagitis. Fatty liver. Genitourinary History: Reports: None Other Genitourinary History: History of urolithiasis in 2012 with spontaneous passageside unknown. 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 Hypotension with last 2 pregnancies. SAB during first trimester with D&C as below. Otherwise Full term without complications during pregnancies or deliveries. Fibrocystic breast disease. Musculoskeletal History: Reports: Arthritis, Back Pain, Chronic, Fracture, Osteoarthritis, Other (See Below) Other Musculoskeletal History: Gliosis with chronic low back pain. Fracture of the right thumb in 1988. Neurological History: Reports: None Other Neuro History: Unknown type of seizures during teenage years with last seizure at age 20. 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 Acne vulgaris. - Infectious Disease History Infectious Disease History: Reports: Chicken Pox, Mononucleosis, MRSA, Shingles - Past Surgical History Head Surgeries/Procedures: Reports: None HEENT Surgical History: Reports: Oral Surgery, Other (See Below) Other HEENT Surgeries/Procedures: [place] teeth extraction 4 at age 24. Cardiovascular Surgical History: Reports: None Respiratory Surgical History: Reports: None GI Surgical History: Reports: Cholecystectomy, Colonoscopy, EGD, Other (See Below) Other GI Surgeries/Procedures: Laparoscopic cholecystectomy in 2014. EGD with biopsy on 03/25/15. Colonoscopy on 11/25/15. Female Surgical History: Reports: D&C, Hysterectomy, Salpingo-Oophorectomy, Other (See Below) Other Female Surgeries/Procedures: Complete hysterectomy with right-sided salpingo-oophorectomy secondary to ovarian cancer in 2007. D&C in 1993 secondary to SAB as above. Endocrine Surgical History: Reports: None Neurological Surgical History: Reports: None Musculoskeletal Surgical History: Reports: None Oncologic Surgical History: Reports: None Dermatological Surgical History: Reports: None - Past Imaging History Past Imaging History: Reports: CAT Scan (CT of the head on 03/25/14. CT of the abdomen and pelvis with contrast last on 12/25/17 with previous evaluations on 07/27/16, 07/13/16, 05/12/16 and 06/02/15), Mammogram (Last mammogram on 05/17/17.), MRI (MRI of the lumbar spine on 07/19/15, 04/28/14, and 04/21/14.), Ultrasound (Pelvic ultrasounds on 12/25/17 and 03/01/17. Bilateral renal ultrasound on 07/09/17. 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 Denies: Night Sweats, Diaphoresis HEENT: Reports: Rhinitis (mild), Throat Pain. Denies: Ear Discharge, Ear Pain, Eye Discharge, Eye Pain, Vision Change Respiratory: Reports: Cough. Denies: Shortness of Breath, Wheezing, Pleuritic Chest Pain, Sputum, Hemoptysis Cardiovascular: Reports: No Symptoms GI/Abdominal: Reports: Decreased Appetite. Denies: Abdominal Pain, Constipation, Diarrhea, Distension, Nausea, Vomiting : Reports: No Symptoms Musculoskeletal: Reports: Other (generalized body aches) Skin: Reports: Other (no acute changes) Neurological: Reports: Headache Psychiatric: Reports: No Symptoms ED EXAM, GENERAL - Physical Exam Exam: See Below Exam Limited By: No Limitations General Appearance: Alert, Other (appears uncomfortable but no acute distress) Eye Exam: Bilateral Eye: EOMI, PERRL Ears: Normal External Exam, Normal Canal, Hearing Grossly Normal Nose: No: Nasal Deformity, Nasal Swelling, Nasal Drainage Throat/Mouth: Normal Inspection, Normal Voice, No Airway Compromise Head: Atraumatic, Normocephalic Neck: Normal Inspection, Supple, Non-Tender, Full Range of Motion. No: Lymphadenopathy (L), Lymphadenopathy (R) Respiratory/Chest: No Respiratory Distress, Lungs Clear, Normal Breath Sounds, No Accessory Muscle Use, Chest Non-Tender Cardiovascular: Normal Peripheral Pulses, No Murmur, Tachycardia GI/Abdominal: Normal Bowel Sounds, Soft, Non-Tender, No Distention (Female) Exam: Deferred Rectal (Female) Exam: Deferred Back Exam: No: CVA Tenderness (L), CVA Tenderness (R), Muscle Spasm, Paraspinal Tenderness, Vertebral Tenderness Extremities: Normal Range of Motion, Non-Tender, No Pedal Edema, Other (cap refill 3 sec) Neurological: Alert, Oriented, CN II-XII Intact, Normal Cognition, Normal Gait, No Motor/Sensory Deficits Psychiatric: Normal Affect, Normal Mood Skin Exam: Warm, Dry, Intact, Normal Color Course - Vital Signs Last Recorded V/S: Last Vital Signs Temp 37.7 C 10/25/21 21:25 Pulse 104 H 10/25/21 21:25 Resp 16 10/25/21 21:25 BP 123/64 10/25/21 19:24 Pulse Ox 95 10/25/21 21:25 - Orders/Labs/Meds Orders: Active Orders 24 hr Category Date Time Status Chest 1V Frontal [CR] Stat Exams 10/25/21 19:44 Taken Isolation [COMM] Routine Oth 10/25/21 20:05 Active Labs: Laboratory Tests 10/25/21 10/25/21 10/25/21 Range/Units 19:55 19:55 19:55 WBC 3.1 L (4.0-10.2) K/uL RBC 4.11 (3.77-5.09) M/uL Hgb 12.0 (11.7-15.5) g/dL Hct 37.8 (34.0-46.0) % MCV 92.0 (84.0-98.0) fL MCH 29.2 (28.2-33.3) pg MCHC 31.7 (31.7-36.0) g/dL RDW 13.0 (11.2-14.1) % Plt Count 171 D (150-350) K/uL Neut % (Auto) 52.5 (45.0-80.0) % Lymph % (Auto) 22.9 (10.0-50.0) % [place] % (Auto) 23.9 H (2.0-14.0) % Eos % (Auto) 0.0 (0.0-5.0) % Baso % (Auto) 0.7 (0.0-2.0) % Neut # (Auto) 1.61 (1.40-7.00) K/uL Lymph # (Auto) 0.70 (0.50-3.50) K/uL [place] # (Auto) 0.73 (0.00-1.00) K/uL Eos # (Auto) 0.00 (0.00-0.50) K/uL Baso # (Auto) 0.02 (0.00-0.20) K/uL Sodium 140 (136-145) mmol/L Potassium 3.7 (3.5-5.1) mmol/L Chloride 107 (98-107) mmol/L Carbon Dioxide 24.3 (21.0-32.0) mmol/L Anion Gap 8.7 (7-15) meq/L BUN 12 (7-18) mg/dL Creatinine 0.74 (0.51-1.17) mg/dL Est Cr Clr Drug Dosing 76.07 mL/min Estimated GFR (MDRD) > 60 mL/min Glucose 107 H (70-99) mg/dL Calcium 8.4 L (8.5-10.1) mg/dL Magnesium 1.6 L (1.8-2.4) mg/dL Total Bilirubin 0.4 (0.2-1.0) mg/dL AST 19 (15-37) U/L ALT 24 (12-78) U/L Alkaline Phosphatase 62 (46-116) IU/L Total Protein 6.3 L (6.4-8.2) g/dL Albumin 3.4 (3.4-5.0) g/dL Meds: Medications Discontinued Medications Generic Name Dose Route Start Last Admin Trade Name Kade PRN Reason Stop Dose Admin Acetaminophen 650 mg 10/25/21 20:07 10/25/21 20:22 Acetaminophen 325 Mg Tab PO 10/25/21 20:08 650 mg NOW ONE Administration Albuterol/Ipratropium 1 gm 10/25/21 20:33 10/25/21 20:55 Albuterol/Ipratropium 4 Gm Inhalation [place] INH 10/25/21 20:34 1 inhalation ONETIME ONE Administration Sodium Chloride 1,000 mls @ 9,999 mls/hr 10/25/21 20:04 10/25/21 20:17 Normal Saline IV 10/25/21 20:09 9,999 mls/hr .BOLUS ONE Administration Magnesium Sulfate/Dextrose 1 100 mls @ 100 mls/hr 10/25/21 20:32 10/25/21 21:18 gm/ Premix IV 10/25/21 21:31 100 mls/hr ONETIME ONE Administration Ketorolac Tromethamine 15 mg 10/25/21 20:34 10/25/21 20:57 Ketorolac 15 Mg/Ml Sdv IVPUSH 10/25/21 20:35 15 mg ONETIME ONE Administration Morphine Sulfate 2 mg 10/25/21 20:34 10/25/21 20:57 Morphine 2 Mg/Ml Syringe IVPUSH 10/25/21 20:35 2 mg ONETIME ONE Administration Ondansetron HCl 4 mg 10/25/21 20:34 10/25/21 20:58 Ondansetron 4 Mg/2 Ml Sdv IVPUSH 10/25/21 20:35 4 mg ONETIME ONE Administration - Re-Assessments/Exams Free Text/Narrative Re-Assessment/Exam: 10/25/21 20:05 Chest xray showed no obvious focal infiltrates. IV bolus ordered. 10/25/21 21:40 WBC 3.1 Mag 1.6 Labs otherwise overall unremarkable. Fever improved after Tylenol. IV Mag ordered. Patient also received medication for her headache and body aches. Combivent dose given. Patient will continue to use that at home. Patient appears more comfortable. Chatty, visiting with staff and in a good mood. Plan at this time is to let patient return home. Will have pharmacy review if tessa singh is candidate for outpatient infusion for Covid. Precautions reviewed. She is to return to the ER if she gets worse, develops shortness of breath, etc. Continue Combivent/Tylenol and Ibuprofen PRN/daily aspirin and is to stay hydrated. Recommend starting Magnesium supplementation. 10/25/21 21:57 Fever resolved. Heart rate improved. Departure - Departure Time of Disposition: 22:30 Disposition: Home, Self-Care 01 Condition: Good Clinical Impression: COVID-19 virus infection - Discharge Information *PRESCRIPTION DRUG MONITORING PROGRAM REVIEWED*: Not Applicable *COPY OF PRESCRIPTION DRUG MONITORING REPORT IN PATIENT HENNY: Not Applicable Prescriptions: Benzonatate [Tessalon Perles] 100 mg PO TID PRN #50 cap PRN Reason: Cough Instructions: 10 Things You Can Do to Manage Your COVID-19 Symptoms at Home - [facility]– [place] (04/29/2021) Referrals: Kaitlyn Foley PA [Primary Care Provider] - Forms: ED Department Discharge Additional Instructions: Use the Combivent one puff every 6 hours to help with cough. Stay hydrated. Take a 325mg aspirin daily during Covid infection. Tylenol and/or Ibuprofen for pain and fever. Follow up for recheck if you have any problems/concerns such as developing shortness of breath. Start Magnesium Glycinate 400-500mg daily. Get Mag level rechecked in one month. Adjust dose as needed at that time. Sepsis Event Note (ED) - Evaluation Sepsis Screening Result: No Definite Risk - Focused Exam Vital Signs: Vital Signs Temp Pulse Resp Pulse Ox 10/25/21 21:25 37.7 C 104 H 16 95 - My Orders Last 24 Hours: My Active Orders 10/25/21 19:44 Chest 1V Frontal [CR] Stat 10/25/21 20:05 Isolation [COMM] Routine - Assessment/Plan Last 24 Hours: My Active Orders 10/25/21 19:44 Chest 1V Frontal [CR] Stat 10/25/21 20:05 Isolation [COMM] Routine
== END 2021-10-25 22:30 | disposition home or self-care (01) ==
LOC: LL.ED 19:23
DX: U07.1 COVID-19 (principal); Z91.048 Other nonmedicinal substance allergy status; Z79.899 Other long term (current) drug therapy; Z87.891 Personal history of nicotine dependence; Z77.22 Contact with and (suspected) exposure to environmental tobacco smoke (acute) (chronic)
CPT/HCPCS: 36415; 71045; 80053; 83735; 85025; 96365; 96375; 99284; 99284-25; A9270-GY; J1885; J2270; J2405; J3475; J7030

== ENCOUNTER 2021-12-21 19:04 | Emergency (ER) | payer BC, MEDICAID ==
[2021-12-21 19:18] VITALS: BP 109/65; PULSE 74
[2021-12-21] MEDS ORDERED: Scopolamine 1.5 MG Transdermal Patch TRDERM PRN (19:40)
[2021-12-21] MEDS ORDERED: diphenhydrAMINE 50 MG/ML SDV IVPUSH ONE (19:42)
[2021-12-21] MEDS ORDERED: Lactated Ringers 1,000 ML IV ONE (19:42)
[2021-12-21] MEDS ORDERED: Sodium Chloride 0.9% 10 ML Syringe FLUSH PRN (19:42)
[2021-12-21] MEDS ORDERED: Metoclopramide 10 MG/2 ML SDV IVPUSH ONE (19:43)
[2021-12-21] MEDS ORDERED: Ketorolac 30 MG/ML SDV IM ONE (19:43)
== END 2021-12-21 21:00 | disposition home or self-care (01) ==
LOC: LL.ED 19:04
DX: G43.119 Migraine with aura, intractable, without status migrainosus (principal); Z91.048 Other nonmedicinal substance allergy status; Z91.018 Allergy to other foods; Z87.891 Personal history of nicotine dependence
CPT/HCPCS: 96372; 96374; 96375; 99283-25; A9270-GY; J1200; J1885; J2765; J7120

== ENCOUNTER 2021-12-27 17:39 | Emergency (ER) | payer BC, MEDICAID ==
[2021-12-27] MEDS ORDERED: Sodium Chloride 0.9% 10 ML Syringe FLUSH PRN (18:20)
[2021-12-27] MEDS ORDERED: Sodium Chloride 0.9% 1,000 ML IV ONE (18:20)
[2021-12-27] MEDS ORDERED: Metoclopramide 10 MG/2 ML SDV IVPUSH ONE (18:20)
[2021-12-27] MEDS ORDERED: diphenhydrAMINE 50 MG/ML SDV IVPUSH ONE (18:21)
[2021-12-27] MEDS ORDERED: Ketorolac 30 MG/ML SDV IVPUSH ONE (18:21)
[2021-12-27 18:59] LABS: CHLORIDE,CL 108 mmol/L (98-107); SODIUM,NA 140 mmol/L (136-145)
[2021-12-27 19:00] LABS: ANION GAP 13.5 meq/L (7-15)
[2021-12-27 23:42] VITALS: BP 98/52; PULSE 70
== END 2021-12-27 21:00 | disposition home or self-care (01) ==
LOC: LL.ED 17:39
DX: G43.519 Persistent migraine aura without cerebral infarction, intractable, without status migrainosus (principal); Z91.048 Other nonmedicinal substance allergy status; Z91.018 Allergy to other foods; Z87.891 Personal history of nicotine dependence
CPT/HCPCS: 36415; 71046; 80053; 83735; 84484; 85025; 93005; 96374; 96375; 99284; J1200; J1885; J2765; J3490; J7030; 93010

== ENCOUNTER 2022-03-01 12:56 | Emergency (ER) | payer BC, MEDICAID ==
[2022-03-01] MEDS ORDERED: Aspirin 81 MG Tab.Chew PO ONE (13:30)
[2022-03-01] MEDS ORDERED: Morphine 2 MG/ML SYRINGE IVPUSH ONE (13:34)
[2022-03-01] MEDS ORDERED: Lactated Ringers 1,000 ML IV ONE (13:34)
[2022-03-01] MEDS ORDERED: Ondansetron 4 MG/2 ML SDV IVPUSH ONE (13:47)
[2022-03-01] MEDS: Sodium Chloride 0.9% 10 ML Syringe FLUSH PRN ×2 (13:56→13:57)
[2022-03-01 14:01] LABS: ANION GAP 14.2 meq/L (7-15)
[2022-03-01 14:03] LABS: CHLORIDE,CL 106 mmol/L (98-107)
[2022-03-01 14:05] LABS: SODIUM,NA 141 mmol/L (136-145)
[2022-03-01] MEDS ORDERED: Potassium Chloride 20 MEQ Tab.ER PO ONE (14:14)
[2022-03-01 19:44] VITALS: BP 97/69; PULSE 78
== END 2022-03-01 16:50 | disposition home or self-care (01) ==
LOC: LL.ED 12:56
DX: R07.9 Chest pain, unspecified (principal); K21.9 Gastro-esophageal reflux disease without esophagitis; Z91.018 Allergy to other foods; Z91.040 Latex allergy status; Z87.891 Personal history of nicotine dependence
CPT/HCPCS: 36415; 71046; 80053; 83605; 83690; 83735; 84484; 85025; 85610; 86140; 93005; 96361; 96374; 96375; 99285-25; A9270-GY; J2270; J2405; J3490; J7120

== ENCOUNTER 2022-10-13 20:52 | Emergency (ER) | payer MEDICAID ==
[2022-10-13] MEDS ORDERED: Sodium Chloride 0.9% 10 ML Syringe FLUSH PRN (21:08)
[2022-10-13] MEDS ORDERED: Ketorolac 30 MG/ML SDV IM ONE (21:32)
[2022-10-13 21:38] LABS: ANION GAP 15.6 meq/L (7-15); CHLORIDE,CL 105 mmol/L (98-107); ESTIMATED GFR 97 mL/min (>=60); SODIUM,NA 140 mmol/L (136-145)
[2022-10-13 23:25] VITALS: BP 94/78; PULSE 84
== END 2022-10-13 22:06 | disposition home or self-care (01) ==
LOC: LL.ED 20:52
DX: M94.0 Chondrocostal junction syndrome [Tietze] (principal); Z91.048 Other nonmedicinal substance allergy status; Z79.899 Other long term (current) drug therapy; Z90.49 Acquired absence of other specified parts of digestive tract; Z90.710 Acquired absence of both cervix and uterus
CPT/HCPCS: 36415; 71046; 80053; 82550; 84484; 85025; 85379; 93005; 96372; 99285; J1885

== ENCOUNTER 2023-01-22 09:44 | Emergency (ER) | payer MEDICAID ==
[2023-01-22] MEDS ORDERED: Sodium Chloride 0.9% 10 ML Syringe FLUSH PRN (09:57)
[2023-01-22] MEDS: Ondansetron 4 MG/2 ML SDV IVPUSH ONE (10:41)
[2023-01-22] MEDS: Ketorolac 15 MG/ML SDV IVPUSH ONE (10:42)
[2023-01-22] MEDS: Sodium Chloride 0.9% 1,000 ML IV ONE (10:48)
[2023-01-22] MEDS: Lactulose Soln 10 GM/15 ML 30 ML UD Cup PO ONE (10:53)
[2023-01-22] MEDS: Polyethylene Glycol 3350 Powder 17 GM Packet PO ONE (10:53)
[2023-01-22 10:59] VITALS: BP 102/61; PULSE 75
[2023-01-22 11:06] LABS: ANION GAP 8.8 meq/L (7-15)
[2023-01-22] MEDS: Bisacodyl 5 MG Tab PO ONE (13:29)
== END 2023-01-22 13:55 | disposition home or self-care (01) ==
LOC: LL.ED 09:44
DX: K59.00 Constipation, unspecified (principal); K21.9 Gastro-esophageal reflux disease without esophagitis; Z91.018 Allergy to other foods; Z91.048 Other nonmedicinal substance allergy status; Z79.899 Other long term (current) drug therapy; Z87.891 Personal history of nicotine dependence
CPT/HCPCS: 36415; 74022; 80053; 81003; 83605; 83735; 84484; 85025; 93005; 93010; 96361; 96374; 96375; 99284; 99284-25; A9270-GY; J1885; J2405; J7030

== ENCOUNTER 2023-04-10 15:27 | Emergency (ER) | payer MEDICAID ==
[2023-04-10 16:12] LABS: BASOPHILS ABSOLUTE AUTO 0.03 K/uL (0.00-0.20); BASOPHILS PERCENT AUTO 0.6 % (0.0-2.0); HEMATOCRIT 43.4 % (34.0-46.0); HEMOGLOBIN 14.3 g/dL (11.7-15.5); LYMPHOCYTES ABSOLUTE AUTO 1.65 K/uL (0.50-3.50); LYMPHOCYTES PERCENT AUTO 33.1 % (10.0-50.0); MEAN CORPUSCULAR HEMOGLOBIN 29.5 pg (28.2-33.3); MEAN CORPUSCULAR HGB CONC 32.9 g/dL (31.7-36.0); MEAN CORPUSCULAR VOLUME 89.5 fL (84.0-98.0); MONOCYTES ABSOLUTE AUTO 0.74 K/uL (0.00-1.00); MONOCYTES PERCENT AUTO 14.8 % (2.0-14.0); NEUTROPHILS ABSOLUTE AUTO 2.37 K/uL (1.40-7.00); NEUTROPHILS PERCENT AUTO 47.5 % (45.0-80.0); PLATELET COUNT,PLT 266 K/uL (150-350); RED BLOOD CELL COUNT 4.85 M/uL (3.77-5.09)
[2023-04-10 16:16] VITALS: BP 108/88; PULSE 104
[2023-04-10 16:26] LABS: ALBUMIN 3.5 g/dL (3.4-5.0); ANION GAP 11.4 meq/L (7-15); BILIRUBIN TOTAL 0.3 mg/dL (0.2-1.0); CALCIUM 9.1 mg/dL (8.5-10.1); CARBON DIOXIDE,CO2 23.6 mmol/L (21.0-32.0); CREATININE 0.78 mg/dL (0.51-1.17); EST CRCL DRUG DOSING (CG) 71.38 mL/min; PROTEIN TOTAL,TP 6.9 g/dL (6.4-8.2)
[2023-04-10 16:31] LABS: LACTIC ACID 0.8 mmol/L (0.4-2.0)
[2023-04-10] MEDS ORDERED: Vancomycin 1.5 GM in Sodium Chloride 0.9% 500 ML IV ONE (16:57)
[2023-04-10] MEDS ORDERED: VANCOmycin 1.5 GM/300 ML 1.5 GM in Premix Bag 1 BAG IV ONE (17:09)
== END 2023-04-10 19:10 | disposition home or self-care (01) ==
LOC: LL.ED 15:27
DX: A49.02 Methicillin resistant Staphylococcus aureus infection, unspecified site (principal); Q82.8 Other specified congenital malformations of skin; K21.9 Gastro-esophageal reflux disease without esophagitis; Z91.018 Allergy to other foods; Z91.048 Other nonmedicinal substance allergy status; Z87.891 Personal history of nicotine dependence
CPT/HCPCS: 36415; 80053; 83605; 85025; 96374; 99283-25; 99284; J3370

== ENCOUNTER 2023-09-18 21:02 | Emergency (ER) | payer OTHER ==
[2023-09-18 21:09] VITALS: BP 108/74; PULSE 114
[2023-09-18 21:29] LABS: BASOPHILS ABSOLUTE AUTO 0.02 K/uL (0.00-0.20); BASOPHILS PERCENT AUTO 0.3 % (0.0-2.0); HEMATOCRIT 47.9 % (34.0-46.0); HEMOGLOBIN 16.1 g/dL (11.7-15.5); LYMPHOCYTES ABSOLUTE AUTO 1.11 K/uL (0.50-3.50); LYMPHOCYTES PERCENT AUTO 18.9 % (10.0-50.0); MEAN CORPUSCULAR HEMOGLOBIN 29.2 pg (28.2-33.3); MEAN CORPUSCULAR HGB CONC 33.6 g/dL (31.7-36.0); MEAN CORPUSCULAR VOLUME 86.9 fL (84.0-98.0); MONOCYTES ABSOLUTE AUTO 0.83 K/uL (0.00-1.00); MONOCYTES PERCENT AUTO 14.1 % (2.0-14.0); NEUTROPHILS ABSOLUTE AUTO 3.91 K/uL (1.40-7.00); NEUTROPHILS PERCENT AUTO 66.7 % (45.0-80.0); PLATELET COUNT,PLT 252 K/uL (150-350); RED BLOOD CELL COUNT 5.51 M/uL (3.77-5.09); RED CELL DISTRIBUTION WIDTH 13.3 % (11.2-14.1); WHITE BLOOD CELL COUNT,WBC 5.9 K/uL (4.0-10.2)
[2023-09-18 21:49] LABS: ALANINE AMINOTRANSFERASE,ALT 32 U/L (12-78); ALBUMIN 3.7 g/dL (3.4-5.0); ALKALINE PHOSPHATASE 80 IU/L (46-116); ANION GAP 9.6 meq/L (7-15); ASPARTATE AMNIOTRANSFERASE,AST 18 U/L (15-37); BILIRUBIN TOTAL 0.8 mg/dL (0.2-1.0); BLOOD UREA NITROGEN,BUN 9 mg/dL (7-18); CALCIUM 9.1 mg/dL (8.5-10.1); CARBON DIOXIDE,CO2 26.4 mmol/L (21.0-32.0); CHLORIDE,CL 102 mmol/L (98-107); CREATININE 0.87 mg/dL (0.51-1.17); GLUCOSE RANDOM 112 mg/dL (70-99); POTASSIUM,K 4.4 mmol/L (3.5-5.1); PROTEIN TOTAL,TP 7.2 g/dL (6.4-8.2); SODIUM,NA 138 mmol/L (136-145)
[2023-09-18 21:50] LABS: ESTIMATED GFR 81 mL/min (>=60)
[2023-09-18 22:06] LABS: CORONAVIRUS COVID-19 NAA NEGATIVE (NEGATIVE); INFLUENZA A NAA NEGATIVE (NEGATIVE); INFLUENZA B NAA NEGATIVE (NEGATIVE); RESPIRATORY SYNCYTIAL VIR NAA NEGATIVE (NEGATIVE)
[2023-09-18] MEDS: Sodium Chloride 0.9% 1,000 ML IV ONE (22:14)
[2023-09-18] MEDS: Ondansetron 4 MG/2 ML SDV IVPUSH ONE (22:18)
[2023-09-18] MEDS: Sodium Chloride 0.9% 10 ML Syringe FLUSH PRN (22:19)
[2023-09-18 23:23] LABS: APPEARANCE,URINE SLIGHTLY CLOUDY; BILIRUBIN,URINE NEGATIVE (NEGATIVE); COLOR,URINE YELLOW; GLUCOSE,URINE NEGATIVE (NEGATIVE); KETONES,URINE NEGATIVE (NEGATIVE); LEUKOCYTE ESTERASE,URINE NEGATIVE (NEGATIVE); NITRITE,URINE NEGATIVE (NEGATIVE); OCCULT BLOOD,URINE MODERATE (NEGATIVE); PH,URINE 5.5 (5.0-9.0); PROTEIN,URINE TRACE mg/dL (NEGATIVE); UROBILINOGEN,URINE 0.2 E.U./dL (0.2-1.0)
[2023-09-18 23:33] LABS: BACTERIA,URINE RARE /HPF (NONE TO FEW); EPITHELIAL CELLS,URINE MODERATE /LPF; MUCUS,URINE MODERATE /LPF (NEGATIVE); WBC,URINE 0-5 /HPF
[2023-09-18] MEDS: Take Home: Ondansetron 4 MG Tab.DIS, 5 Tab Pack PO ONE (23:51)
[2023-09-18] MEDS: Promethazine 25 MG Tab PO ONE (23:51)
== END 2023-09-18 23:56 | disposition home or self-care (01) ==
LOC: LL.ED 21:02
DX: B34.9 Viral infection, unspecified (principal); K21.9 Gastro-esophageal reflux disease without esophagitis; Z20.822 Contact with and (suspected) exposure to COVID-19; Z79.899 Other long term (current) drug therapy; Z91.018 Allergy to other foods; Z91.048 Other nonmedicinal substance allergy status; Z90.710 Acquired absence of both cervix and uterus
CPT/HCPCS: 0241U; 36415; 80053; 81001; 83605; 83735; 85025; 96361; 96374; 99283-25; 99284; A9270-GY; J2405; J3490; J7030; Q0162

== ENCOUNTER 2023-10-19 15:22 | Emergency (ER) | payer OTHER ==
[2023-10-19] MEDS ORDERED: Nitroglycerin 0.4 MG Tab.SL SL PRN (15:34)
[2023-10-19 15:35] LABS: BASOPHILS ABSOLUTE AUTO 0.03 K/uL (0.00-0.20); BASOPHILS PERCENT AUTO 0.4 % (0.0-2.0); EOSINOPHILS ABSOLUTE AUTO 0.14 K/uL (0.00-0.50); EOSINOPHILS PERCENT AUTO 1.8 % (0.0-5.0); HEMATOCRIT 44.9 % (34.0-46.0); HEMOGLOBIN 14.8 g/dL (11.7-15.5); LYMPHOCYTES ABSOLUTE AUTO 1.59 K/uL (0.50-3.50); LYMPHOCYTES PERCENT AUTO 20.9 % (10.0-50.0); MEAN CORPUSCULAR VOLUME 87.9 fL (84.0-98.0); MONOCYTES ABSOLUTE AUTO 1.04 K/uL (0.00-1.00); MONOCYTES PERCENT AUTO 13.7 % (2.0-14.0); NEUTROPHILS PERCENT AUTO 63.2 % (45.0-80.0); PLATELET COUNT,PLT 268 K/uL (150-350); RED BLOOD CELL COUNT 5.11 M/uL (3.77-5.09); RED CELL DISTRIBUTION WIDTH 13.7 % (11.2-14.1); WHITE BLOOD CELL COUNT,WBC 7.6 K/uL (4.0-10.2)
[2023-10-19] MEDS ORDERED: Morphine 2 MG/ML SYRINGE IVPUSH ONE (15:48)
[2023-10-19] MEDS ORDERED: Ondansetron 4 MG/2 ML SDV IVPUSH ONE (15:48)
[2023-10-19 15:57] LABS: ALANINE AMINOTRANSFERASE,ALT 32 U/L (12-78); ALBUMIN 3.5 g/dL (3.4-5.0); ALKALINE PHOSPHATASE 89 IU/L (46-116); ASPARTATE AMNIOTRANSFERASE,AST 14 U/L (15-37); BILIRUBIN TOTAL 0.5 mg/dL (0.2-1.0); BLOOD UREA NITROGEN,BUN 18 mg/dL (7-18); CALCIUM 9.1 mg/dL (8.5-10.1); CHLORIDE,CL 102 mmol/L (98-107); CREATININE 0.81 mg/dL (0.51-1.17); GLUCOSE RANDOM 92 mg/dL (70-99); MAGNESIUM 1.9 mg/dL (1.8-2.4); POTASSIUM,K 3.9 mmol/L (3.5-5.1); PRO B-TYPE NATRIUR PEPT,BNPPRO 26 pg/mL (0-125); PROTEIN TOTAL,TP 7.1 g/dL (6.4-8.2); SODIUM,NA 138 mmol/L (136-145)
[2023-10-19 15:58] LABS: ESTIMATED GFR 88 mL/min (>=60)
[2023-10-19] MEDS ORDERED: Pantoprazole 40 MG Vial IVPUSH ONE (16:08)
[2023-10-19] MEDS ORDERED: Iopamidol 612 MG/ML 100 ML Bottle IVPUSH ONE (16:13)
[2023-10-19] MEDS ORDERED: Lidocaine 2% Viscous Solution 15 ML UD PO ONE (16:14)
[2023-10-19] MEDS ORDERED: Aluminum Hydroxide/Magnesium Hydroxide/Simethicone Susp 30 ML Cup PO ONE (16:14)
[2023-10-19 16:23] LABS: CORONAVIRUS COVID-19 NAA NEGATIVE (NEGATIVE); INFLUENZA A NAA NEGATIVE (NEGATIVE); INFLUENZA B NAA NEGATIVE (NEGATIVE); RESPIRATORY SYNCYTIAL VIR NAA NEGATIVE (NEGATIVE)
[2023-10-19 16:24] VITALS: BP 96/81; PULSE 111
[2023-10-19] MEDS ORDERED: Promethazine 25 MG/ML SDV IM ONE (16:30)
[2023-10-19] MEDS ORDERED: Sodium Chloride 0.9% 1,000 ML IV ONE (16:49)
[2023-10-19] MEDS ORDERED: methylPREDNISolone Sodium Succinate 40 MG/1 ML SDV IVPUSH ONE (17:29)
[2023-10-19] MEDS ORDERED: Take Home: traMADol 50 MG, 4 Tab Pack PO ONE (17:50)
[2023-10-19] MEDS ORDERED: Take Home: predniSONE 20 MG, 4 Tab Pack PO ONE (17:51)
== END 2023-10-19 18:10 | disposition home or self-care (01) ==
LOC: LL.ED 15:22
DX: R07.89 Other chest pain (principal); Z20.822 Contact with and (suspected) exposure to COVID-19; Z79.899 Other long term (current) drug therapy; Z91.018 Allergy to other foods
CPT/HCPCS: 0241U; 36415; 71045; 71260; 80053; 83605; 83690; 83735; 83880; 84484; 85025; 85379; 93005; 96372; 96374; 96375; 99285-25; A9270-GY; C9113; J2270; J2405; J2550; J2920; Q9967